=== PATIENT | male | born 1990 | race Asian ===

== ENCOUNTER 2016-05-31 09:18 | Inpatient (IN) | payer OTHER ==
[~2016-05-31] VITALS: Ht 165.1 cm; Wt 68.1 kg
[2016-05-31 09:49] LABS: MEAN CORPUSCULAR HEMOGLOBIN 29.4 pg (27.0-33.0); MEAN CORPUSCULAR HGB CONC 36.4 g/dl (32.0-36.5); MEAN CORPUSCULAR VOLUME 80.7 fl (80.0-96.0); RED CELL DISTRIBUTION WIDTH 12.8 % (11.5-14.5); WHITE BLOOD COUNT 4.8 K/mm3 (4.0-10.0)
[2016-05-31 10:03] LABS: AMPHETAMINES LEVEL URINE NEGATIVE (NEGATIVE); BENZODIAZEPINES URINE NEGATIVE (NEGATIVE); COCAINE METABOLITE URINE NEGATIVE (NEGATIVE); CONTROL LINE INT CTR LINE PRESENT; METHADONE URINE NEGATIVE (NEGATIVE); OPIATES URINE NEGATIVE (NEGATIVE); TRICYCLIC ANTIDEPRESS URINE NEGATIVE (NEGATIVE)
[2016-05-31 10:28] LABS: ALBUMIN 4.8 GM/DL (3.2-5.2); ALBUMIN/GLOBULIN RATIO 1.55 (1.00-1.93); ALKALINE PHOSPHATASE 82 U/L (45-117); ALT/SGPT 53 U/L (12-78); ANION GAP 6 MEQ/L (8-16); AST/SGOT 28 U/L (15-37); BILIRUBIN,DIRECT 0.3 MG/DL (0.0-0.2); BILIRUBIN,TOTAL 1.7 MG/DL (0.2-1.0); BLOOD UREA NITROGEN 15 MG/DL (7-18); CARBON DIOXIDE LEVEL 32 MEQ/L (21-32); CHLORIDE LEVEL 102 MEQ/L (98-107); CREATININE FOR GFR 1.04 MG/DL (0.70-1.30); GLOMERULAR FILTRATION RATE > 60.0 (>60); GLUCOSE, FASTING 95 MG/DL (70-105); POTASSIUM SERUM 4.4 MEQ/L (3.5-5.1); SODIUM LEVEL 140 MEQ/L (136-145); TOTAL PROTEIN 7.9 GM/DL (6.4-8.2)
[2016-05-31] MEDS ORDERED: REFR0.5D8 OU (13:06)
[2016-05-31] MEDS ORDERED: NORT25CA2 PO (14:08)
[2016-05-31] MEDS ORDERED: DESM0.2T PO (14:08)
[2016-05-31] MEDS ORDERED: ACETAMINOPHEN TAB 650MG DOSE (2X325MG) PO PRN (15:45)
[2016-05-31] MEDS ORDERED: traZODone 50 MG TAB PO PRN (15:45)
[2016-05-31] MEDS ORDERED: MAALOX 30 ML SUSP *UDC PO PRN (15:45)
[2016-05-31] MEDS ORDERED: POLYVINYL ALCOHOL OPHTH SOLN 15 ML(LIQUITEARS) OU PRN (15:45)
[2016-05-31 16:07] VITALS: BP 114/67
--- NOTE | 2016-05-31 16:09 | EDDOCDS ---
Physician Documentation [facility] Name: Kesha Darby Age: 25 yrs Sex: Male : 1990 Arrival Date: 05/31/2016 Time: 09:18 Bed U2 Private MD: Disposition: 05/31/16 12:16 Hospitalization ordered by Qamar Martin for Inpatient Admission. Preliminary diagnosis is Suicidal ideations. - Bed requested for Admit. - Status is Inpatient Admission. ms2 - Condition is Stable. - Problem is new. - Symptoms are unchanged. Historical: - Allergies: no known allergies; - Home Meds: 1. Nortriptyline Oral Unknown once daily 2. eye drops for dry eye 3. desmo something for chronic polyuria 4. admission electrical controls technician in to review meds with pt at 1400 - PMHx: polyuria; dry eyes; dizzininess; low back pain; - PSHx: none; - Social history: Smoking status: Patient states was never smoker of tobacco. No barriers to communication noted, The patient speaks fluent Thai. - Family history: Not pertinent. - : The pt / caregiver states he / she is not on anticoagulants. Unable to Verify Home Med List with the patient / caregiver. - Exposure Risk Screening:: None identified. Vital Signs: 05/31 09:36 BP 126 / 88; Pulse 84; Resp 18; Temp 98(O); Pulse Ox 99% ; mk4 15:12 BP 111 / 65; Pulse 100; Resp 20 S; Temp 97.9(O); Pulse Ox 98% on R/A; ms2 MDM: 09:27 Consult PFS/PSA/Airplane Pilot Supervisor ordered. sd1 09:27 Consult PFS/PSA/Airplane Pilot Supervisor: Patient's case requires discussion with on-call sd1 Psychiatrist ordered. 09:27 PSA/PFS to call Nursing Ammunition And Explosives Handler, to enter [place] data on [place] if patient sd1 involuntarily admitted or transferred for SI or HI ordered. 09:27 Confirm accurate psychiatric medication list and times of last dosage ordered. sd1 09:27 Detain Pt Until Medically/PFS Cleared ordered. sd1 09:29 Acetaminophen Level Ordered. EDMS 09:29 Basic Metabolic Profile Ordered. EDMS 09:29 Complete Blood Count Ordered. EDMS 09:29 Drug Eval Toxicology ED Only Ordered. EDMS 09:29 Ethyl Alcohol (ethanol) Ordered. EDMS 09:29 Liver Profile Ordered. EDMS 09:29 Salicylate Level Ordered. EDMS 09:29 Thyroid Stimulating Hormone Ordered. EDMS 10:16 REGULAR DIET ROOM SERVICE ED+DIET ordered. EDMS 10:36 Acetaminophen Level Reviewed. sd1 10:36 Basic Metabolic Profile Reviewed. sd1 10:36 Liver Profile Reviewed. sd1 10:36 Salicylate Level Reviewed. sd1 10:36 Complete Blood Count Reviewed. sd1 10:36 Drug Eval Toxicology ED Only Reviewed. sd1 10:36 Ethyl Alcohol (ethanol) Reviewed. sd1 10:36 Thyroid Stimulating Hormone Reviewed. sd1 11:42 [facility] Payment Agreement was scanned into [employer] and attached to record. jp5 11:42 Financial registration complete. jp5 11:49 REGULAR DIET ROOM SERVICE ED+DIET ordered. EDMS 12:22 Admit to IMHU: ordered. EDMS 12:29 [facility] Legal paperwork was scanned into [employer] and attached to record. ml4 15:45 REGULAR DIET ordered. EDMS Signatures: Dispatcher [employer] EDMS Laura Lopez MD MD sd1 Lawson Vee,RN RN ms2 Ines Stout, PSA PSA ml4 Marianna Chau, RN RN mk4 Sheryl Donahue jp5 The chart was reviewed and I authenticate all verbal orders and agree with the evaluation and treatment provided.Attachments: 11:42 [facility] Payment Agreement jp5 MTDD
--- NOTE | 2016-05-31 16:09 | EDDOCDS ---
Nurse's Notes [facility] Name: Kesha Darby Age: 25 yrs Sex: Male : 1990 Arrival Date: 05/31/2016 Time: 09:18 Bed [facility] Private MD: Diagnosis: Suicidal ideations Presentation: 05/31 09:25 Presenting complaint: Patient states: sent from [facility]. Mental [facility] Health Triage Level: Level 2: The patient displays active suicidal ideations. Adult Sepsis Screening: The patient does not have new or worsening altered mentation. Patient's respiratory rate is less than 22. Systolic blood pressure is greater than 100. Patient has a qSOFA score of 0- Negative Sepsis Screen. Suicide/Homicide risk assessment- The patient admits to and/or has been reported to be having suicidal ideations. 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 Transition of care: patient was received from [facility]. 09:25 Acuity: HANS Level 3 [facility] 09:25 Method Of Arrival: Ambulance [facility] Triage Assessment: 09:36 General: Appears in no apparent distress. Pain: Location: reports chronic back pain. 4 HIV screening NA for this visit Offered previously. Historical: - Allergies: no known allergies; - Home Meds: 1. Nortriptyline Oral Unknown once daily 2. eye drops for dry eye 3. desmo something for chronic polyuria 4. admission cell technician in to review meds with pt at 1400 - PMHx: polyuria; dry eyes; dizzininess; low back pain; - PSHx: none; - Social history: Smoking status: Patient states was never smoker of tobacco. No barriers to communication noted, The patient speaks fluent Syrian. - Family history: Not pertinent. - : The pt / caregiver states he / she is not on anticoagulants. Unable to Verify Home Med List with the patient / caregiver. - Exposure Risk Screening:: None identified. Screenin:55 Screening information is obtained from the patient. Fall risk: No risks identified. ms2 Assistance ADL's: requires no assistance with activities of daily living. Abuse/DV Screen: The patient / caregiver reports he/she is: not in a situation that causes fear, pain or injury. Nutritional screening: No deficits noted. Advance Directives: Currently, there is no health care proxy. There is no active DNR order. There is no living will. There is no Power of Supervisor Heading. Advance directive information has not previously been placed in an [facility] medical record. Further advance directive information is declined. home support is adequate. Assessment: 09:37 General: Appears in no apparent distress, comfortable, Behavior is cooperative, dwg pleasant, quiet. General: Calm and cooperative, offers no complaints.. Pain: Denies pain. Neurological: Level of Consciousness is awake, alert, Oriented to person, place, time. Respiratory: Airway is patent Respiratory effort is even, unlabored, Respiratory pattern is regular, symmetrical. 10:16 Reassessment: Patient anxious and appears scared - had to think if he had pain or not kcs and then stated "no". Was agreeable to something to eat - ordered. Denies any other needs. Respirations easy. Color = pink. Security observing.. 10:47 Reassessment: Patient eating. escort at bedside. Security observing.. kcs 11:50 General: Appears in no apparent distress, comfortable, sitting in chair -F Drun ms2 personnel sitting with pt. Behavior is cooperative. Neurological: Level of Consciousness is awake, alert, obeys commands. Respiratory: No deficits noted. Airway is patent Respiratory effort is even, unlabored, Respiratory pattern is regular, symmetrical. GI: Abdomen is flat, non- distended. Derm: Skin is pink, warm & dry. Musculoskeletal: Range of motion intact in all extremities. 12:31 General: Appears comfortable, Behavior is cooperative, remains with pt. ms2 Neurological: No deficits noted. Respiratory: No deficits noted. :. Derm: Skin is pink, warm & dry. 13:15 General: Appears in no apparent distress, comfortable, Behavior is cooperative, ms2 with pt. Neurological: No deficits noted. Respiratory: Respiratory effort is even, unlabored. Derm: Skin is pink, warm & dry. Musculoskeletal: Range of motion intact in all extremities. 14:35 General: Appears in no apparent distress, Behavior is cooperative. Neurological: No ms2 deficits noted. Respiratory: Respiratory effort is even, unlabored, Respiratory pattern is regular, symmetrical. Derm: Skin is pink, warm & dry. Musculoskeletal: No deficits noted. 15:13 General: Appears in no apparent distress, comfortable, Behavior is crying. ms2 Neurological: No deficits noted. Respiratory: Respiratory effort is even, unlabored. Derm: Skin is pink, warm & dry. Derm: No deficits noted. 15:13 Adult Sepsis Screening: The patient does not have new or worsening altered mentation. ms2 Patient's respiratory rate is less than 22. Systolic blood pressure is greater than 100. Patient has a qSOFA score of 0- Negative Sepsis Screen. 15:38 General: Appears in no apparent distress, comfortable, Behavior is cooperative, ms2 pleasant. Neurological: Level of Consciousness is awake, alert, obeys commands. Respiratory: No deficits noted. Airway is patent Respiratory effort is even, unlabored, Respiratory pattern is regular, symmetrical. GI: Abdomen is flat, non- distended. Derm: Skin is pink, warm & dry. Musculoskeletal: Range of motion intact in all extremities. Mental Health Eval: 11:42 Mental health consult is initiated at 11:30. 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 [facility] Behavioral Health: The patient is not an established patient of [facility] Behavioral Health. Referral Information: Evaluation referral is generated by Clinical Psychologist(Jamal Sullivan) \\T\\ FDS. The patient was referred for evaluation because thoughts of suicide with plan OD due to on-going stressors . Subjective: The patients chief complaint is pt states, "I need to be hospitalized." Pt reports suffering from thoughts of suicide for awhile, however thoughts are getting increasingly more severe. Admits he's wanting to kill himself with plan to OD. Pt states, "I have lots of meds I can take to kill myself." Admits 5 months ago, he attempted suicide by OD, but refuses to explain in detail due to feeling embarrassed. States he never received tx and never told anyone until today. Suicidal triggers include distress related to his divorce and occupational stressors. His ex and 2 year old daughter reside in [place] and states, "I've lost everything." He reports unable to sleep due to missing his daughter too much and states, "everyday is a struggle and I want to ." Pt is very vague while speaking about occupational stressors and refuses to elaborate on specific details. In addition to SI, pt reports suffering from AH and describes them as "they are behind me and calling my name." . Delusions are denied. Patient's mood is anxious, depressed, Auditory Hallucinations are reported by the patient. Mental Health history: depression, Mental Health Admissions: None. Current Outpatient Mental Health Services: Psychiatrist / Agency: Jamal Sullivan/[facility], Last seen today . Therapist / Agency: [facility] . Current living environment is Family / Home Support: poor, but parents are here on visiting pt on [place]. The patient currently lives alone . The patient is . Patient presents to Emergency Department with the following symptoms within the past 2 weeks: anxiety, decreased appetite, depressed mood, feelings of helplessness/hopelessness, marital problem, poor concentration, poor impulse control, relational problem, sleep disturbance - insomnia, suicidal ideation with plan for pills. Substance abuse: Pt denies. Mental status exam: Patients appearance is appropriate, Patient's behavior is cooperative, Speech is normal. Affect is flat. Mood is depressed. Auditory Hallucinations are reported by the patient. Appetite is poor. Memory is good. Energy level is normal. Content of thought is depressive. due to thoughts of suicide with plan. Thought process is intact. Cognitive level is oriented to person, place, time and situation Patient's insight is poor. Judgement is poor. Rapport with interviewer is good. Suicidal Ideation present with a plan to kill self by pills. Homicidal ideation is denied. Disposition: Medically cleared for disposition by Laura Lopez MD Psychiatric Consult is performed by phone with Dr Qamar Martin MD. [facility] Admission Criteria: The patient is experiencing suicidal ideation. The patient requires continuous observation and/or control to protect self, others or property. The patient's care requires a multi-modal treatment plan under close supervision and coordination due to the complexity and severity of the patient's symptoms. The patient requires administration and monitoring of psychoactive medications by skilled medical providers due to the side effects of the psychoactive medications or significant dosage adjustments. Legal Status: Patient's legal status will be Emergency admission: . [place] because the patient does not display any suicidal or homicidal ideations and does not pose a risk to self or others. DSM-V Differential Diagnosis: Major Depressive Disorder severe (F33.2). Insurance Pre-Certification: Not Required, not required, tri-care . Narrative: Notice of Status and Rights, FAQ, and Bill of Rights was given at bedside. Awaiting: transfer to [facility]. Vital Signs: 09:36 BP 126 / 88; Pulse 84; Resp 18; Temp 98(O); Pulse Ox 99% ; mk4 15:12 BP 111 / 65; Pulse 100; Resp 20 S; Temp 97.9(O); Pulse Ox 98% on R/A; ms2 Vitals: 09:36 Log In Time N/A - ambulance arrival. mk4 ED Course: 09:20 Patient visited by Sheryl Donahue. jp5 09:20 Patient moved to Waiting jp5 09:[address] [facility] dwg 09:26 Triage Initiated mk4 09:27 Laura Lopez MD is Attending Physician. sd1 09:27 Patient visited by Laura Lopez MD. sd1 09:30 Patient visited by Ko Contreras Security Aide. pjf 09:37 Acetaminophen Level Sent. dwg 09:37 Basic Metabolic Profile Sent. dwg 09:37 Complete Blood Count Sent. dwg 09:37 Drug Eval Toxicology ED Only Sent. dwg 09:37 Ethyl Alcohol (ethanol) Sent. dwg 09:37 Liver Profile Sent. dwg 09:37 Salicylate Level Sent. dwg 09:37 Thyroid Stimulating Hormone Sent. dwg 09:37 Labs drawn. (by ED staff). Sent per order to lab. Urine collected. Clean catch dwg specimen. Urine specimen sent to lab. 09:38 Patient visited by Daniel Reyes RN. dwg 09:40 Pt greeted and oriented to ED. Patient advised of names of staff involved in care, pjf location of call kwan, wait times and NPO status. Accompanied by ems, Patient has correct armband on for positive identification. Placed in psych safe attire. Bed in low position. Call light in reach. Side rails up X 1. Security observing. Property removed, secured in belongings bag- Placed in locker #2. Door closed. Noise minimized. Visitors limited. Report received from rn - psych. triage level #2, +si, cooperative \\T\\ this time. The patient / caregiver is instructed regarding the plan of care and ED course. Psych Safety Check: Location: Psych Room. 10:05 Patient visited by oK Contreras Security Aide. pjf 10:17 Patient visited by Ko Contreras Security Aide. pjf 10:29 Patient visited by Ko Contreras Security Aide. pjf 10:45 Patient visited by Ko Contreras Security Aide. pjf 11:01 Patient visited by Ko Contreras Security Aide. pjf 11:15 Patient visited by Ko Contreras Security Aide. pjf 11:32 Patient visited by Ko Contreras Security Aidradha. pjf 11:42 [facility] Payment Agreement was scanned into [employer] and attached to record. jp5 11:46 Patient visited by Ko Contreras Security Aidradha. pjf 11:50 The patient / caregiver is instructed regarding the plan of care and ED course. ms2 Security observing. 11:55 The patient / caregiver is instructed regarding the plan of care and ED course. ms2 Security observing. 11:59 Patient visited by Ko Contreras Security Aidradha. pjf 12:12 Patient visited by Ko Contreras Security Aide. pjf 12:16 Qamar Martin MD is Hospitalizing Provider. sd1 12:29 [facility] Legal paperwork was scanned into [employer] and attached to record. ml4 12:31 The patient / caregiver is instructed regarding the plan of care and ED course. ms2 Security observing. 13:02 Patient visited by Ko Contreras Security Aidradha. pjf 13:14 Patient visited by Ko Contreras Security Aidradha. pjf 13:15 Psych Safety Check: Location: Psych Room. Visual Assessment: Cooperative. pjf 13:15 The patient / caregiver is instructed regarding the plan of care and ED course. ms2 Security observing. 13:30 Psych Safety Check: Location: Psych Room. Visual Assessment: Cooperative. pjf 13:45 Psych Safety Check: Location: Psych Room. Visual Assessment: Cooperative. pjf 14:00 Psych Safety Check: Location: Psych Room. Visual Assessment: Cooperative. pjf 14:15 Psych Safety Check: Location: Psych Room. Visual Assessment: Cooperative. pjf 14:29 Patient name changed from Himal\\S\\\\S\\Pangeni\\S\\ to Himal\\S\\ \\S\\Pangeni. EDMS 14:30 Psych Safety Check: Location: Psych Room. Visual Assessment: Cooperative. pjf 14:35 The patient / caregiver is instructed regarding the plan of care and ED course. ms2 Security observing. 14:49 Patient visited by Ko Contreras Security Aide. pjf 15:12 Patient visited by Lawson Vee RN. ms2 15:13 The patient / caregiver is instructed regarding the plan of care and ED course. ms2 Security observing. 15:15 Patient visited by Lawson Vee RN. ms2 15:31 Patient visited by Ko Contreras Security Aide. pjf 15:39 The patient / caregiver is instructed regarding the plan of care and ED course. ms2 Security observing. 15:39 No IV's were initiated during this patient's visit. No procedures done that require ms2 assistance. Attachments: 12:29 [facility] Legal paperwork ml4 Order Results: Lab Order: Acetaminophen Level; SPEC'M 05/31/16 09:35 Test: ACETAMINOPHEN LEVEL; Value: < 2.0; Range: 10.0-30.0; Abnormal: Below low normal; Units: UG/ML; Status: F Lab Order: Basic Metabolic Profile; SPEC'M 05/31/16 09:35 Test: GLUCOSE, FASTING; Value: 95; Range: 70-105; Units: MG/DL; Status: F Test: BLOOD UREA NITROGEN; Value: 15; Range: 7-18; Units: MG/DL; Status: F Test: CREATININE FOR GFR; Value: 1.04; Range: 0.70-1.30; Units: MG/DL; Status: F Test: GLOMERULAR FILTRATION RATE; Value: > 60.0; Range: >60; Status: F Test: SODIUM LEVEL; Value: 140; Range: 136-145; Units: MEQ/L; Status: F Test: POTASSIUM SERUM; Value: 4.4; Range: 3.5-5.1; Units: MEQ/L; Status: F Test: CHLORIDE LEVEL; Value: 102; Range: 98-107; Units: MEQ/L; Status: F Test: CARBON DIOXIDE LEVEL; Value: 32; Range: 21-32; Units: MEQ/L; Status: F Test: ANION GAP; Value: 6; Range: 8-16; Abnormal: Below low normal; Units: MEQ/L; Status: F Test: CALCIUM LEVEL; Value: 9.0; Range: 8.5-10.1; Units: MG/DL; Status: F Test Note: ; Units are mL/min/1.73 m2 Chronic Kidney Disease Staging per NKF: Stage I & II GFR >=60 Normal to Mildly Decreased Stage III GFR 30-59 Moderately Decreased Stage IV GFR 15-29 Severely Decreased Stage V GFR <15 Very Little GFR Left ESRD GFR <15 on BIOCHEMISTRY TECHNICIAN Lab Order: Complete Blood Count; SPEC'M 05/31/16 09:35 Test: WHITE BLOOD COUNT; Value: 4.8; Range: 4.0-10.0; Units: K/mm3; Status: F Test: RED BLOOD COUNT; Value: 5.87; Range: 4.30-6.10; Units: M/mm3; Status: F Test: HEMOGLOBIN; Value: 17.2; Range: 14.0-18.0; Units: g/dl; Status: F Test: HEMATOCRIT; Value: 47.4; Range: 42.0-52.0; Units: %; Status: F Test: MEAN CORPUSCULAR VOLUME; Value: 80.7; Range: 80.0-96.0; Units: fl; Status: F Test: MEAN CORPUSCULAR HEMOGLOBIN; Value: 29.4; Range: 27.0-33.0; Units: pg; Status: F Test: MEAN CORPUSCULAR HGB CONC; Value: 36.4; Range: 32.0-36.5; Units: g/dl; Status: F Test: RED CELL DISTRIBUTION WIDTH; Value: 12.8; Range: 11.5-14.5; Units: %; Status: F Test: PLATELET COUNT, AUTOMATED; Value: 178; Range: 150-450; Units: k/mm3; Status: F Lab Order: Drug Eval Toxicology ED Only; SPEC'M 05/31/16 09:30 Test: AMPHETAMINES LEVEL URINE; Value: NEGATIVE; Range: NEGATIVE; Status: F Test: BARBITURATES URINE; Value: NEGATIVE; Range: NEGATIVE; Status: F Test: BENZODIAZEPINES URINE; Value: NEGATIVE; Range: NEGATIVE; Status: F Test: CANNABINOIDS URINE; Value: NEGATIVE; Range: NEGATIVE; Status: F Test: COCAINE METABOLITE URINE; Value: NEGATIVE; Range: NEGATIVE; Status: F Test: METHADONE URINE; Value: NEGATIVE; Range: NEGATIVE; Status: F Test: OPIATES URINE; Value: NEGATIVE; Range: NEGATIVE; Status: F Test: TRICYCLIC ANTIDEPRESS URINE; Value: NEGATIVE; Range: NEGATIVE; Status: F Test Note: ; ALL PRESUMPTIVE POSITIVE FINDINGS ARE UNCONFIRMED NORMAL VALUES THRESHOLD IN NG/ML AMPHETAMINES 1000 METHAMPHETAMINES 1000 BARBITURATES 300 BENZODIAZEPINES 300 CANNABINOIDS (THC) 50 COCAINE METABOLITE 300 METHADONE 300 OPIATES 300 PHENCYCLIDINE 25 TRICYCLIC ANTIDEPRESSANTS 1000 RESULTS ARE FOR MEDICAL PURPOSES ONLY. ALL URINE SPECIMENS WILL BE SAVED FOR 3 DAYS. IF CONFIRMATION OF A PRESUMPTIVE POSTIVE SCREEN RESULT IS DESIRED, CALL CHEMISTRY ([phone]) AND REQUEST URINE TO BE SENT TO REFERENCE LAB. FOR A LIST OF CLOSELY RELATED COMPOUNDS PLEASE CALL THE LAB. Lab Order: Ethyl Alcohol (ethanol); 05/31/16 09:35 Test: ETHYL ALCOHOL (ETHANOL); Value: < 0.003; Range: 0.000-0.010; Units: %; Status: F Lab Order: Liver Profile; 05/31/16 09:35 Test: AST/SGOT; Value: 28; Range: 15-37; Units: U/L; Status: F Test: ALT/SGPT; Value: 53; Range: 12-78; Units: U/L; Status: F Test: ALKALINE PHOSPHATASE; Value: 82; Range: 45-117; Units: U/L; Status: F Test: BILIRUBIN,TOTAL; Value: 1.7; Range: 0.2-1.0; Abnormal: Above high normal; Units: MG/DL; Status: F Test: BILIRUBIN,DIRECT; Value: 0.3; Range: 0.0-0.2; Abnormal: Above high normal; Units: MG/DL; Status: F Test: TOTAL PROTEIN; Value: 7.9; Range: 6.4-8.2; Units: GM/DL; Status: F Test: ALBUMIN; Value: 4.8; Range: 3.2-5.2; Units: GM/DL; Status: F Test: ALBUMIN/GLOBULIN RATIO; Value: 1.55; Range: 1.00-1.93; Status: F Lab Order: Salicylate Level; 05/31/16 09:35 Test: SALICYLATE LEVEL; Value: < 1.7; Range: 5.0-30.0; Abnormal: Below low normal; Units: MG/DL; Status: F Lab Order: Thyroid Stimulating Hormone; 05/31/16 09:35 Test: THYROID STIMULATING HORMONE; Value: 2.280; Range: 0.358-3.740; Units: uIU/ML; Status: F Outcome: 12:16 Decision to Hospitalize by Provider. sd1 15:39 Discharge Assessment: patient administered narcotics - no. The following High Risk ms2 Discharge criteria are identified: None. Admitted to Psych accompanied by tech, via wheelchair, with chart. Condition: stable. No special radiology studies were completed. 16:08 Patient left the ED. ms2 Signatures: Dispatcher [employer] EDMS Laura Lopez MD MD sd1 Esperanza Nair, RN RN kcs Lawson Vee,RN RN ms2 Daniel Reyes, RN RN Ko Garcia, [facility] Aide Ines Pratt PSA PSA ml4 Marianna Chau, RN RN 4 Sheryl Donahue jp5 PAIGE
[2016-05-31 18:00] VITALS: BP 122/83
[2016-05-31] MEDS: DESMOPRESSIN ACETATE 0.1 MG TAB PO SCH (21:19)
[2016-05-31] MEDS: NORTRIPTYLINE 25 MG CAP PO SCH (21:19)
[2016-06-01 06:34] VITALS: BP 118/65
--- NOTE | 2016-06-01 09:44 | HPEPDOC ---
[facility] History & Physical History and Physical DATE OF ADMISSION: May 31, 2016 at 15:50 CHIEF COMPLAINT: "I've been in behavioral health 8-9 months already, was told to come over here". 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 Patient states he is currently going through a divorce, is missing his 2-year- old daughter who lives with his in [place], and doesn't feel he can function properly at work. Patient feels he is very overwhelmed and stressed because of all of this. Patient is also concerned as he feels [facility] is holding up his visits for his medical conditions. Patient states most worrisome are his urology and kidney issues which he has been trying to see a jig and fixture maker since January 2016. Patient is also worried that he will be deployed before he can get his issues addressed. PAST PSYCHIATRIC HISTORY: Patient states he's been in behavioral health services at [employer] for the last 8-9 months. Patient reports he started the services at the beginning of his divorce process. Patient denies any prior psychiatric history. ALLERGIES: Please see below. HOME MEDICATIONS: Please see below. Patient denies PAST MEDICAL HISTORY: 1. Polyuria 2. Migraine headaches 3. Dizziness FAMILY PSYCHIATRIC HISTORY: Patient denies. 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 Patient is currently from his who lives in [place] with their 2-year-old daughter. Patient reports that his parents are currently living with him. Patient states he has one brother and 2 sisters that are supportive but live in [facility]. 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 SUBSTANCE ABUSE HISTORY: Patient states he was involved in the [employer] program until last year. Patient reports he did have a drinking problem but doesn't drink at all now. LEGAL HISTORY: Denies. VITAL SIGNS: Temperature 95.9, pulse 96, respiratory rate 16, blood pressure 118 /65. LABORATORY DATA: Please see below. Admission UDS was negative. GFR is greater than 60, total bili is 1.7 which is high, direct bili 0.3 which is high, anion gap is 6 which is low. MENTAL STATUS EXAMINATION: Patient is a 25 year-old male who appears his stated age. Patient is observed lying in bed as provider approaches. Patient gets up readily to speak with provider without being asked. Patient is pleasant and cooperative. Patient is wearing hospital scrubs and T-shirt, has average grooming, is of normal weight and build. Speech: Is of normal rate, volume. Patient is articulate, coherent and spontaneous. Language skills: Intact. Thought processes: Clearing, not goal-directed yet. Thought content: Rational, logical, tangential times. Abstract reasoning, and computation: Adequate. Description of associations: Intact. Description of abnormal or psychotic thoughts: Patient denies hallucinations, however initially stated he had auditory hallucinations with someone behind him calling his name. Patient denies delusions, paranoia, obsessions or compulsions. Patient denies any homicidal or suicidal ideations. Patient does feel he may be preoccupied with his work. Patient states "my work, there is a lot ". Patient has no thoughts of self-harm such as cutting. Judgment: Poor. Insight: Poor. Orientation to: Time, person, place and surroundings. Recent and remote memory: "Not bad". Attention span and concentration: Fair. Language: Normal. Fund of knowledge: Adequate. Mood: "Little headache, a little of everything". Affect: Appropriate, constricted, anxious. DIAGNOSES: 1. Depressive disorder, single-moderate. 2. 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 Patient feels his biggest stressors are his current health issues that he can't get any answers on. This is followed by the impending divorce with his and inability to see his daughter that often. Patient is also worried about upcoming deployment especially if he is not yet medically cleared. Patient had not yet been put on any meds by behavioral health. Patient states he slept well after he took the meds. Patient states "I took the meds ". Patient reports he was able to get 6 hours of sleep. Patient denies having any nightmares during last nights sleep. His nightmares have been a problem recently, affecting his sleep. PROBLEM LIST: 1. Risk for suicide. 2. Ineffective coping. 3. Depression/anxiety. INITIAL TREATMENT PLAN: Patient to take medications as ordered for decrease in symptoms. Maintain safety precautions. Patient to attend groups and participate in unit programming to develop effective coping strategies. Patient to be engaged in discharge planning process to ensure safe and effective discharge plan. Patient to follow-up with primary care physician upon discharge. Patient to resume therapy and medication management upon discharge. ESTIMATED LENGTH OF STAY: 7-10 days. TIME SPENT COUNSELING AND COORDINATING INITIAL CARE: 50 minutes. Medications Scheduled Desmopressin Acetate (Desmopressin Acetate) 0.2 Mg Tab 0.2 MG PO QHS (Reported ) Nortriptyline HCl (Nortriptyline HCl) 25 Mg Cap 25 MG PO QHS (Reported) Scheduled PRN Carboxymethylcellulose Sodium (Refresh Tears) 0.5 % Abelardo 0.5 % OU PRN PRN PRN DRY EYES (Reported) Allergies Coded Allergies: No Known Drug Allergy (Unverified Allergy, Unknown, 05/31/16) VETO GALICIA NP Jun 01, 2016 09:44
[2016-06-01] MEDS ORDERED: hydrOXYzine 25 MG TAB PO PRN (13:15)
--- NOTE | 2016-06-01 14:48 | HPEPDOC ---
Medical History and Physical Date of Admission May 31, 2016 at 15:50 History and Physical PCP: [facility] ATTENDING: Dr. Kristopher Palacios HPI: 25yoM admitted to [facility] for depressive disorder, being medically examined today. Patient complains of low back pain. He denies prior injury. Denies prior imaging. He states the pain radiates to the right buttock. Radiates down to the posterior knee. He denies weakness in the legs. No numbness or tingling in the lower extremities. He denies bowel or bladder incontinence. Sitting or running makes his pain worse. Walking makes his pain better. Denies any fevers, chills, weakness, fatigue, KAUFMAN, CP, SOB, cough, palpitations, abdominal pain, N/V/D or changes in bowel or bladder habits. PMHx: chronic back pain depression anxiety migraine KAUFMAN insomnia chronic polyuria/urinary frequency- follows with [facility] urology PSHX: denies SOCHX: Resides in: [place], from [facility] Marital Status: Kids: 1 Employment: [employer] Tobacco use: denies ETOH: [employer] 02/11 4-5 cans per nt for 6 mo prior. Illicit Drugs: Denies IV Drug Use: Denies Tattoos done unprofessionally: Denies FAMHX: Mother: Alive, well Father: Alive, DM Siblings: Alive, well Children: Alive, well Unexpected deaths due to medical reasons: None. ROS: As noted in HPI, otherwise 11pt ROS of systems reviewed and unremarkable PE: GEN: 25yoM, appears stated age. Well-nourished, well developed. No acute distress. Alert and oriented x 3. Pleasant, interactive. HEENT: Normocephalic, atraumatic. Pupils are equal, round, and reactive to light. Extraocular movements are intact. No nystagmus appreciated. Sclera are nonicteric. Conjunctiva without injection. Nose midline. Nasal turbinates without bogginess. EACs both patent BL. TMs both visualized and [place] with good cone of light, no bulging or erythema. No facial asymmetry. Moist mucous membranes. Dentition fair. Pharynx pink and moist, no cobblestoning. Neck supple , trachea midline. No lymphadenopathy or thyromegaly appreciated. CHEST: Regular rate and rhythm, +S1, +S2 LUNGS: Clear to auscultation bilaterally. No wheezes, rales, or rhonchi. Breathing appears symmetric and easy. Patient is speaking in full sentences. No accessory muscle use. ABD: Round, soft, non-tender, non-distended. +Bowel sounds throughout. No rebound or guarding. No costovertebral angle tenderness. EXT: Pulses 2+ bilaterally dorsalis pedis and radial. No lower extremity edema appreciated. SKIN: [place], dry, warm. Capillary refill <2sec. No rashes. NEURO: Alert and oriented x 3. Cranial nerves III-XII are intact. No focal deficits appreciated. EKG: pending. A&P: 25yoM admitted to [facility] for depressive disorder 1. Psych. Plan per Psychiatry. Obtain baseline EKG to assure the safety of psychiatric medications as they can prolong the QT interval. 2. chronic polyuria/urinary frequency. DDAVP 0.2mg HS. Spoke to Nephrology he has appt with Nephrology- Dr Kay 07/03/16. 3. migraine KAUFMAN- Continue Pamelor 25mg HS. 4. Follow up with PCP on discharge. [facility]. 5. Chronic low back pain. Check x-ray of lumbosacral spine. Check vitamin D level. Continue Tylenol 650 mg every 6 hours as needed. 6. Staff member present throughout exam, Benson patino. Vital Signs Vital Signs Label Value Date Time Patient Temperature 95.9 degrees F 06/01/16 0634 Temperature Source Tympanic 06/01/16 0634 Pulse 96 06/01/16 0634 Respiratory Rate 16 bpm 06/01/16 0634 Blood Pressure Assessment 118/65 (82) 06/01/16 0634 Laboratory Data Labs 24H Item Value Date Time White Blood Count 4.8 K/mm3 05/31/16 0935 Red Blood Count 5.87 M/mm3 05/31/16 0935 Hemoglobin 17.2 g/dl 05/31/16 0935 Hematocrit 47.4 % 05/31/16 0935 Mean Corpuscular Volume 80.7 fl 05/31/16 0935 Mean Corpuscular Hemoglobin 29.4 pg 05/31/16 0935 Mean Corpuscular Hemoglobin Concent 36.4 g/dl 05/31/16 0935 Red Cell Distribution Width 12.8 % 05/31/16 0935 Platelet Count 178 k/mm3 05/31/16 0935 Sodium Level 140 MEQ/L 05/31/1635 Potassium Level 4.4 MEQ/L 05/31/16 0935 Chloride Level 102 MEQ/L 05/31/16 0935 Carbon Dioxide Level 32 MEQ/L 05/31/16 0935 Anion Gap 6 MEQ/L L 05/31/16 0935 Blood Urea Nitrogen 15 MG/DL 05/31/16 0935 Creatinine 1.04 MG/DL 05/31/16 0935 Glomerular Filtration Rate > 60.0 05/31/16 0935 Fasting Glucose 95 MG/DL 05/31/16 0935 Calcium Level 9.0 MG/DL 05/31/16 0935 Total Bilirubin 1.7 MG/DL H 05/31/16 0935 Direct Bilirubin 0.3 MG/DL H 05/31/16 0935 Aspartate Amino Transf (AST/SGOT) 28 U/L 05/31/16 0935 Alanine Aminotransferase (ALT/SGPT) 53 U/L 05/31/16 0935 Alkaline Phosphatase 82 U/L 05/31/16 0935 Total Protein 7.9 GM/DL 05/31/16 0935 Albumin 4.8 GM/DL 05/31/16 0935 Albumin/Globulin Ratio 1.55 05/31/16 0935 Thyroid Stimulating Hormone (TSH) 2.280 uIU/ML 05/31/16 0935 Salicylates Level < 1.7 MG/DL L 05/31/1635 Urine Opiates Screen NEGATIVE 05/31/16929 Urine Methadone Screen NEGATIVE 05/31/16 0930 Acetaminophen Level < 2.0 UG/ML L 05/31/16 0935 Urine Barbiturates, Qualitative NEGATIVE 05/31/16 09 Urine Tricyclic Antidepressants NEGATIVE 05/31/1630 Urine Amphetamine Level NEGATIVE 05/31/16 0930 Urine Benzodiazepines Screen NEGATIVE 05/31/1630 Urine Cocaine Metabolite NEGATIVE 05/31/16929 Urine Cannabinoids NEGATIVE 05/31/16 0930 Ethyl Alcohol Level < 0.003 % 05/31/16 0935 Home Medications Scheduled Desmopressin Acetate (Desmopressin Acetate) 0.2 Mg Tab 0.2 MG PO QHS Nortriptyline HCl (Nortriptyline HCl) 25 Mg Cap 25 MG PO QHS Scheduled PRN Carboxymethylcellulose Sodium (Refresh Tears) 0.5 % Abelardo 0.5 % OU PRN PRN PRN DRY EYES Allergies Coded Allergies: No Known Drug Allergy (Unverified Allergy, Unknown, 05/31/16) Sulema Sandoval Jun 01, 2016 14:48
[2016-06-01] MEDS: MOM 30ML SUSPENSION UDC PO PRN (16:13)
--- NOTE | 2016-06-01 16:13 | REP ---
Lumbar spine series: Five views: History: Pain. Findings: Five views of the lumbar spine show preserved vertebral body heights. Alignment is normal. There is some straightening of the normal lumbar lordosis. Disc spaces are maintained. No fracture or collapse is seen. Impression: Straightening. Otherwise negative lumbar spine radiographs. Signed by Santiago Flores MD 06/01/2016 07:29 P
[2016-06-01 18:00] VITALS: BP 106/65
--- NOTE | 2016-06-01 18:35 | ECGEPIP ---
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
[2016-06-01] MEDS: DESMOPRESSIN ACETATE 0.1 MG TAB PO SCH (20:52)
[2016-06-01] MEDS: NORTRIPTYLINE 25 MG CAP PO SCH (20:52)
[2016-06-02 06:55] VITALS: BP 101/58
--- NOTE | 2016-06-02 17:09 | EDDOCDS ---
Physician Documentation [facility] Name: Kesha Darby Age: 25 yrs Sex: Male : 1990 Arrival Date: 05/31/2016 Time: 09:18 Bed U2 Private MD: Disposition: 05/31/16 12:16 Hospitalization ordered by Qamar Martin for Inpatient Admission. Preliminary diagnosis is Suicidal ideations. - Bed requested for Admit. - Status is Inpatient Admission. ms2 - Condition is Stable. - Problem is new. - Symptoms are unchanged. Historical: - Allergies: no known allergies; - Home Meds: 1. Nortriptyline Oral Unknown once daily 2. eye drops for dry eye 3. desmo something for chronic polyuria 4. admission pathological technician in to review meds with pt at 1400 - PMHx: polyuria; dry eyes; dizzininess; low back pain; - PSHx: none; - Social history: Smoking status: Patient states was never smoker of tobacco. No barriers to communication noted, The patient speaks fluent Tajik. - Family history: Not pertinent. - : The pt / caregiver states he / she is not on anticoagulants. Unable to Verify Home Med List with the patient / caregiver. - Exposure Risk Screening:: None identified. Vital Signs: 05/31 09:36 BP 126 / 88; Pulse 84; Resp 18; Temp 98(O); Pulse Ox 99% ; mk4 15:12 BP 111 / 65; Pulse 100; Resp 20 S; Temp 97.9(O); Pulse Ox 98% on R/A; ms2 MDM: 09:27 Consult PFS/PSA/Curb Setter Helper ordered. sd1 09:27 Consult PFS/PSA/Curb Setter Helper: Patient's case requires discussion with on-call sd1 Psychiatrist ordered. 09:27 PSA/PFS to call Nursing Four Roll Calender Operator, to enter patient data on [place] Safe Act if patient sd1 involuntarily admitted or transferred for SI or HI ordered. 09:27 Confirm accurate psychiatric medication list and times of last dosage ordered. sd1 09:27 Detain Pt Until Medically/PFS Cleared ordered. sd1 09:29 Acetaminophen Level Ordered. EDMS 09:29 Basic Metabolic Profile Ordered. EDMS 09:29 Complete Blood Count Ordered. EDMS 09:29 Drug Eval Toxicology ED Only Ordered. EDMS 09:29 Ethyl Alcohol (ethanol) Ordered. EDMS 09:29 Liver Profile Ordered. EDMS 09:29 Salicylate Level Ordered. EDMS 09:29 Thyroid Stimulating Hormone Ordered. EDMS 10:16 REGULAR DIET ROOM SERVICE ED+DIET ordered. EDMS 10:36 Acetaminophen Level Reviewed. sd1 10:36 Basic Metabolic Profile Reviewed. sd1 10:36 Liver Profile Reviewed. sd1 10:36 Salicylate Level Reviewed. sd1 10:36 Complete Blood Count Reviewed. sd1 10:36 Drug Eval Toxicology ED Only Reviewed. sd1 10:36 Ethyl Alcohol (ethanol) Reviewed. sd1 10:36 Thyroid Stimulating Hormone Reviewed. sd1 11:42 [place] [place] was scanned into [employer] and attached to record. jp5 11:42 Financial registration complete. jp5 11:49 REGULAR DIET ROOM SERVICE ED+DIET ordered. EDMS 12:22 Admit to IMHU: ordered. EDMS 12:29 [facility] Legal paperwork was scanned into [employer] and attached to record. ml4 15:45 REGULAR DIET ordered. EDMS 06/01 12:24 T-Sheet-- Draft Copy was scanned into [employer] and attached to record. gb 12:25 PCR was scanned into [employer] and attached to record. gb Signatures: Dispatcher [employer] EDTX Laura Lopez MD MD sd1 Lawson Vee,RN RN ms2 Saba Mcadams, Reg Reg gb Ines Stout, PSA PSA ml4 Marianna Chau RN RN 4 Sheryl Donahue jp5 The chart was reviewed and I authenticate all verbal orders and agree with the evaluation and treatment provided.Attachments: 05/31 11:42 [place] [place] Agreement jp5 06/01 12:24 T-Sheet-- Draft Copy gb Chart Complete MTDD
--- NOTE | 2016-06-02 17:09 | EDDOCDS ---
Physician Documentation [facility] Name: Kesha Darby Age: 25 yrs Sex: Male : 1990 Arrival Date: 05/31/2016 Time: 09:18 Bed U2 Private MD: Disposition: 05/31/16 12:16 Hospitalization ordered by Qamar Martin for Inpatient Admission. Preliminary diagnosis is Suicidal ideations. - Bed requested for Admit. - Status is Inpatient Admission. ms2 - Condition is Stable. - Problem is new. - Symptoms are unchanged. Historical: - Allergies: no known allergies; - Home Meds: 1. Nortriptyline Oral Unknown once daily 2. eye drops for dry eye 3. desmo something for chronic polyuria 4. admission eye technician in to review meds with pt at 1400 - PMHx: polyuria; dry eyes; dizzininess; low back pain; - PSHx: none; - Social history: Smoking status: Patient states was never smoker of tobacco. No barriers to communication noted, The patient speaks fluent Hungarian. - Family history: Not pertinent. - : The pt / caregiver states he / she is not on anticoagulants. Unable to Verify Home Med List with the patient / caregiver. - Exposure Risk Screening:: None identified. Vital Signs: 05/31 09:36 BP 126 / 88; Pulse 84; Resp 18; Temp 98(O); Pulse Ox 99% ; mk4 15:12 BP 111 / 65; Pulse 100; Resp 20 S; Temp 97.9(O); Pulse Ox 98% on R/A; ms2 MDM: 09:27 Consult PFS/PSA/Events Solutions Consultant ordered. sd1 09:27 Consult PFS/PSA/Events Solutions Consultant: Patient's case requires discussion with on-call sd1 Psychiatrist ordered. 09:27 PSA/PFS to call Nursing Rn Travel, to enter patient data [place] Safe [place] if patient sd1 involuntarily admitted or transferred for SI or HI ordered. 09:27 Confirm accurate psychiatric medication list and times of last dosage ordered. sd1 09:27 Detain Pt Until Medically/PFS Cleared ordered. sd1 09:29 Acetaminophen Level Ordered. EDMS 09:29 Basic Metabolic Profile Ordered. EDMS 09:29 Complete Blood Count Ordered. EDMS 09:29 Drug Eval Toxicology ED Only Ordered. EDMS 09:29 Ethyl Alcohol (ethanol) Ordered. EDMS 09:29 Liver Profile Ordered. EDMS 09:29 Salicylate Level Ordered. EDMS 09:29 Thyroid Stimulating Hormone Ordered. EDMS 10:16 REGULAR DIET ROOM SERVICE ED+DIET ordered. EDMS 10:36 Acetaminophen Level Reviewed. sd1 10:36 Basic Metabolic Profile Reviewed. sd1 10:36 Liver Profile Reviewed. sd1 10:36 Salicylate Level Reviewed. sd1 10:36 Complete Blood Count Reviewed. sd1 10:36 Drug Eval Toxicology ED Only Reviewed. sd1 10:36 Ethyl Alcohol (ethanol) Reviewed. sd1 10:36 Thyroid Stimulating Hormone Reviewed. sd1 11:42 [place] [place] Agreement was scanned into [employer] and attached to record. jp5 11:42 Financial registration complete. jp5 11:49 REGULAR DIET ROOM SERVICE ED+DIET ordered. EDMS 12:22 Admit to IMHU: ordered. EDMS 12:29 [facility] Legal paperwork was scanned into [employer] and attached to record. ml4 15:45 REGULAR DIET ordered. EDMS 06/01 12:24 T-Sheet-- Draft Copy was scanned into [employer] and attached to record. gb 12:25 PCR was scanned into [employer] and attached to record. gb Signatures: Dispatcher [employer] EDKY Laura Lopez MD MD sd1 Lawson Vee,RN RN ms2 Saba Mcadams, Reg Reg gb Ines Stout, PSA PSA ml4 Marianna Chau RN RN 4 Sheryl Donahue jp5 The chart was reviewed and I authenticate all verbal orders and agree with the evaluation and treatment provided.Attachments: 05/31 11:42 [facility] [place] Agreement jp5 06/01 12:24 T-Sheet-- Draft Copy gb Chart Complete MTDD
--- NOTE | 2016-06-02 17:09 | EDDOCDS ---
Nurse's Notes [facility] Name: Kesha Darby Age: 25 yrs Sex: Male : 1990 Arrival Date: 05/31/2016 Time: 09:[address] [facility] Private MD: Diagnosis: Suicidal ideations Presentation: 05/31 09:25 Presenting complaint: Patient states: sent from [facility]. Mental [facility] Health Triage Level: Level 2: The patient displays active suicidal ideations. Adult Sepsis Screening: The patient does not have new or worsening altered mentation. Patient's respiratory rate is less than 22. Systolic blood pressure is greater than 100. Patient has a qSOFA score of 0- Negative Sepsis Screen. Suicide/Homicide risk assessment- The patient admits to and/or has been reported to be having suicidal ideations. 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 Transition of care: patient was received from [facility]. 09:25 Acuity: HANS Level 3 [facility] 09:25 Method Of Arrival: Ambulance [facility] Triage Assessment: 09:36 General: Appears in no apparent distress. Pain: Location: reports chronic back pain. 4 HIV screening NA for this visit Offered previously. Historical: - Allergies: no known allergies; - Home Meds: 1. Nortriptyline Oral Unknown once daily 2. eye drops for dry eye 3. desmo something for chronic polyuria 4. 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 No barriers to communication noted, The patient speaks fluent Honduran. - Family history: Not pertinent. - : The pt / caregiver states he / she is not on anticoagulants. Unable to Verify Home Med List with the patient / caregiver. - Exposure Risk Screening:: None identified. Screenin:55 Screening information is obtained from the patient. Fall risk: No risks identified. ms2 Assistance ADL's: requires no assistance with activities of daily living. Abuse/DV Screen: The patient / caregiver reports he/she is: not in a situation that causes fear, pain or injury. Nutritional screening: No deficits noted. Advance Directives: Currently, there is no health care proxy. There is no active DNR order. There is no living will. There is no Power of Patient Transportation Driver. Advance directive information has not previously been placed in an [facility] medical record. Further advance directive information is declined. home support is adequate. Assessment: 09:37 General: Appears in no apparent distress, comfortable, Behavior is cooperative, dwg pleasant, quiet. General: Calm and cooperative, offers no complaints.. Pain: Denies pain. Neurological: Level of Consciousness is awake, alert, Oriented to person, place, time. Respiratory: Airway is patent Respiratory effort is even, unlabored, Respiratory pattern is regular, symmetrical. 10:16 Reassessment: Patient anxious and appears scared - had to think if he had pain or not kcs and then stated "no". Was agreeable to something to eat - ordered. Denies any other needs. Respirations easy. Color = pink. Security observing.. 10:47 Reassessment: Patient eating. escort at bedside. Security observing.. kcs 11:50 General: Appears in no apparent distress, comfortable, sitting in chair -F Drun ms2 personnel sitting with pt. Behavior is cooperative. Neurological: Level of Consciousness is awake, alert, obeys commands. Respiratory: No deficits noted. Airway is patent Respiratory effort is even, unlabored, Respiratory pattern is regular, symmetrical. GI: Abdomen is flat, non- distended. Derm: Skin is pink, warm & dry. Musculoskeletal: Range of motion intact in all extremities. 12:31 General: Appears comfortable, Behavior is cooperative, remains with pt. ms2 Neurological: No deficits noted. Respiratory: No deficits noted. :. Derm: Skin is pink, warm & dry. 13:15 General: Appears in no apparent distress, comfortable, Behavior is cooperative, ms2 with pt. Neurological: No deficits noted. Respiratory: Respiratory effort is even, unlabored. Derm: Skin is pink, warm & dry. Musculoskeletal: Range of motion intact in all extremities. 14:35 General: Appears in no apparent distress, Behavior is cooperative. Neurological: No ms2 deficits noted. Respiratory: Respiratory effort is even, unlabored, Respiratory pattern is regular, symmetrical. Derm: Skin is pink, warm & dry. Musculoskeletal: No deficits noted. 15:13 General: Appears in no apparent distress, comfortable, Behavior is crying. ms2 Neurological: No deficits noted. Respiratory: Respiratory effort is even, unlabored. Derm: Skin is pink, warm & dry. Derm: No deficits noted. 15:13 Adult Sepsis Screening: The patient does not have new or worsening altered mentation. ms2 Patient's respiratory rate is less than 22. Systolic blood pressure is greater than 100. Patient has a qSOFA score of 0- Negative Sepsis Screen. 15:38 General: Appears in no apparent distress, comfortable, Behavior is cooperative, ms2 pleasant. Neurological: Level of Consciousness is awake, alert, obeys commands. Respiratory: No deficits noted. Airway is patent Respiratory effort is even, unlabored, Respiratory pattern is regular, symmetrical. GI: Abdomen is flat, non- distended. Derm: Skin is pink, warm & dry. Musculoskeletal: Range of motion intact in all extremities. Mental Health Eval: 11:42 Mental health consult is initiated at 11:30. 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 [facility] Behavioral Health: The patient is not an established patient of [facility] Behavioral Health. Referral Information: Evaluation referral is generated by Clinical Psychologist(Jamal Sullivan) \\T\\ FDS. The patient was referred for evaluation because thoughts of suicide with plan OD due to on-going stressors . Subjective: The patients chief complaint is pt states, "I need to be hospitalized." Pt reports suffering from thoughts of suicide for awhile, however thoughts are getting increasingly more severe. Admits he's wanting to kill himself with plan to OD. Pt states, "I have lots of meds I can take to kill myself." Admits 5 months ago, he attempted suicide by OD, but refuses to explain in detail due to feeling embarrassed. States he never received tx and never told anyone until today. Suicidal triggers include distress related to his divorce and occupational stressors. His ex and 2 year old daughter reside in [place] and states, "I've lost everything." He reports unable to sleep due to missing his daughter too much and states, "everyday is a struggle and I want to ." Pt is very vague while speaking about occupational stressors and refuses to elaborate on specific details. In addition to SI, pt reports suffering from AH and describes them as "they are behind me and calling my name." . Delusions are denied. Patient's mood is anxious, depressed, Auditory Hallucinations are reported by the patient. Mental Health history: depression, Mental Health Admissions: None. Current Outpatient Mental Health Services: Psychiatrist / Agency: Jamal Sullivan/[facility], Last seen today . Therapist / Agency: [facility] . Current living environment is Family / Home Support: poor, but parents are here on visiting pt on [place]. The patient currently lives alone . The patient is . Patient presents to Emergency Department with the following symptoms within the past 2 weeks: anxiety, decreased appetite, depressed mood, feelings of helplessness/hopelessness, marital problem, poor concentration, poor impulse control, relational problem, sleep disturbance - insomnia, suicidal ideation with plan for pills. Substance abuse: Pt denies. Mental status exam: Patients appearance is appropriate, Patient's behavior is cooperative, Speech is normal. Affect is flat. Mood is depressed. Auditory Hallucinations are reported by the patient. Appetite is poor. Memory is good. Energy level is normal. Content of thought is depressive. due to thoughts of suicide with plan. Thought process is intact. Cognitive level is oriented to person, place, time and situation Patient's insight is poor. Judgement is poor. Rapport with interviewer is good. Suicidal Ideation present with a plan to kill self by pills. Homicidal ideation is denied. Disposition: Medically cleared for disposition by Laura Lopez MD Psychiatric Consult is performed by phone with Dr Qamar Martin MD. [facility] Admission Criteria: The patient is experiencing suicidal ideation. The patient requires continuous observation and/or control to protect self, others or property. The patient's care requires a multi-modal treatment plan under close supervision and coordination due to the complexity and severity of the patient's symptoms. The patient requires administration and monitoring of psychoactive medications by skilled medical providers due to the side effects of the psychoactive medications or significant dosage adjustments. Legal Status: Patient's legal status will be Emergency admission: . [place] is [place] because the patient does not display any suicidal or homicidal ideations and does not pose a risk to self or others. DSM-V Differential Diagnosis: Major Depressive Disorder severe (F33.2). Insurance Pre-Certification: Not Required, not required, tri-care . Narrative: Notice of Status and Rights, FAQ, and Bill of Rights was given at bedside. Awaiting: transfer to [facility]. Vital Signs: 09:36 BP 126 / 88; Pulse 84; Resp 18; Temp 98(O); Pulse Ox 99% ; mk4 15:12 BP 111 / 65; Pulse 100; Resp 20 S; Temp 97.9(O); Pulse Ox 98% on R/A; ms2 Vitals: 09:36 Log In Time N/A - ambulance arrival. mk4 ED Course: 09:20 Patient visited by Sheryl Donahue. jp5 09:20 Patient moved to Waiting jp5 09:22 Patient moved to [facility] dwg 09:26 Triage Initiated mk4 09:27 Laura Lopez MD is Attending Physician. sd1 09:27 Patient visited by Laura Lopez MD. sd1 09:30 Patient visited by Ko Contreras Security Aide. pjf 09:37 Acetaminophen Level Sent. dwg 09:37 Basic Metabolic Profile Sent. dwg 09:37 Complete Blood Count Sent. dwg 09:37 Drug Eval Toxicology ED Only Sent. dwg 09:37 Ethyl Alcohol (ethanol) Sent. dwg 09:37 Liver Profile Sent. dwg 09:37 Salicylate Level Sent. dwg 09:37 Thyroid Stimulating Hormone Sent. dwg 09:37 Labs drawn. (by ED staff). Sent per order to lab. Urine collected. Clean catch dwg specimen. Urine specimen sent to lab. 09:38 Patient visited by Daniel Reyes RN. dwg 09:40 Pt greeted and oriented to ED. Patient advised of names of staff involved in care, pjf location of call kwan, wait times and NPO status. Accompanied by ems, Patient has correct armband on for positive identification. Placed in psych safe attire. Bed in low position. Call light in reach. Side rails up X 1. Security observing. Property removed, secured in belongings bag- Placed in locker #2. Door closed. Noise minimized. Visitors limited. Report received from rn - psych. triage level #2, +si, cooperative \\T\\ this time. The patient / caregiver is instructed regarding the plan of care and ED course. Psych Safety Check: Location: Psych Room. 10:05 Patient visited by Ko Contreras Security Aide. pjf 10:17 Patient visited by Ko Contreras Security Aide. pjf 10:29 Patient visited by Ko Contreras Security Aide. pjf 10:45 Patient visited by Ko Contreras Security Aide. pjf 11:01 Patient visited by Ko Contreras Security Aide. pjf 11:15 Patient visited by Ko Contreras Security Aide. pjf 11:32 Patient visited by Ko Contreras Security Aidradha. pjf 11:42 [facility] Payment Agreement was scanned into [employer] and attached to record. jp5 11:46 Patient visited by Ko Contreras Security Aidradha. pjf 11:50 The patient / caregiver is instructed regarding the plan of care and ED course. ms2 Security observing. 11:55 The patient / caregiver is instructed regarding the plan of care and ED course. ms2 Security observing. 11:59 Patient visited by Ko Contreras Security Aidradha. pjf 12:12 Patient visited by Ko Contreras Security Aide. pjf 12:16 Qamar Martin MD is Hospitalizing Provider. sd1 12:29 [facility] Legal paperwork was scanned into [employer] and attached to record. ml4 12:31 The patient / caregiver is instructed regarding the plan of care and ED course. ms2 Security observing. 13:02 Patient visited by Ko Contreras Security Aidradha. pjf 13:14 Patient visited by Ko Contreras Security Aidradha. pjf 13:15 Psych Safety Check: Location: Psych Room. Visual Assessment: Cooperative. pjf 13:15 The patient / caregiver is instructed regarding the plan of care and ED course. ms2 Security observing. 13:30 Psych Safety Check: Location: Psych Room. Visual Assessment: Cooperative. pjf 13:45 Psych Safety Check: Location: Psych Room. Visual Assessment: Cooperative. pjf 14:00 Psych Safety Check: Location: Psych Room. Visual Assessment: Cooperative. pjf 14:15 Psych Safety Check: Location: Psych Room. Visual Assessment: Cooperative. pjf 14:29 Patient name changed from Himal\\S\\\\S\\Pangeni\\S\\ to Himal\\S\\ \\S\\Pangeni. EDMS 14:30 Psych Safety Check: Location: Psych Room. Visual Assessment: Cooperative. pjf 14:35 The patient / caregiver is instructed regarding the plan of care and ED course. ms2 Security observing. 14:49 Patient visited by Ko Contreras Security Aide. pjf 15:12 Patient visited by Lawson Vee RN. ms2 15:13 The patient / caregiver is instructed regarding the plan of care and ED course. ms2 Security observing. 15:15 Patient visited by Lawson Vee RN. ms2 15:31 Patient visited by Ko Contreras Security Aide. pjf 15:39 The patient / caregiver is instructed regarding the plan of care and ED course. ms2 Security observing. 15:39 No IV's were initiated during this patient's visit. No procedures done that require ms2 assistance. 06/01 12:24 T-Sheet-- Draft Copy was scanned into [employer] and attached to record. gb 12:25 PCR was scanned into [employer] and attached to record. gb Attachments: 12:29 [facility] Legal paperwork ml4 Order Results: Lab Order: Acetaminophen Level; SPEC'M 05/31/16 09:35 Test: ACETAMINOPHEN LEVEL; Value: < 2.0; Range: 10.0-30.0; Abnormal: Below low normal; Units: UG/ML; Status: F Lab Order: Basic Metabolic Profile; SPEC'M 05/31/16 09:35 Test: GLUCOSE, FASTING; Value: 95; Range: 70-105; Units: MG/DL; Status: F Test: BLOOD UREA NITROGEN; Value: 15; Range: 7-18; Units: MG/DL; Status: F Test: CREATININE FOR GFR; Value: 1.04; Range: 0.70-1.30; Units: MG/DL; Status: F Test: GLOMERULAR FILTRATION RATE; Value: > 60.0; Range: >60; Status: F Test: SODIUM LEVEL; Value: 140; Range: 136-145; Units: MEQ/L; Status: F Test: POTASSIUM SERUM; Value: 4.4; Range: 3.5-5.1; Units: MEQ/L; Status: F Test: CHLORIDE LEVEL; Value: 102; Range: 98-107; Units: MEQ/L; Status: F Test: CARBON DIOXIDE LEVEL; Value: 32; Range: 21-32; Units: MEQ/L; Status: F Test: ANION GAP; Value: 6; Range: 8-16; Abnormal: Below low normal; Units: MEQ/L; Status: F Test: CALCIUM LEVEL; Value: 9.0; Range: 8.5-10.1; Units: MG/DL; Status: F Test Note: ; Units are mL/min/1.73 m2 Chronic Kidney Disease Staging per NKF: Stage I & II GFR >=60 Normal to Mildly Decreased Stage III GFR 30-59 Moderately Decreased Stage IV GFR 15-29 Severely Decreased Stage V GFR <15 Very Little GFR Left ESRD GFR <15 on [facility] Lab Order: Complete Blood Count; SPEC'M 05/31/16 09:35 Test: WHITE BLOOD COUNT; Value: 4.8; Range: 4.0-10.0; Units: K/mm3; Status: F Test: RED BLOOD COUNT; Value: 5.87; Range: 4.30-6.10; Units: M/mm3; Status: F Test: HEMOGLOBIN; Value: 17.2; Range: 14.0-18.0; Units: g/dl; Status: F Test: HEMATOCRIT; Value: 47.4; Range: 42.0-52.0; Units: %; Status: F Test: MEAN CORPUSCULAR VOLUME; Value: 80.7; Range: 80.0-96.0; Units: fl; Status: F Test: MEAN CORPUSCULAR HEMOGLOBIN; Value: 29.4; Range: 27.0-33.0; Units: pg; Status: F Test: MEAN CORPUSCULAR HGB CONC; Value: 36.4; Range: 32.0-36.5; Units: g/dl; Status: F Test: RED CELL DISTRIBUTION WIDTH; Value: 12.8; Range: 11.5-14.5; Units: %; Status: F Test: PLATELET COUNT, AUTOMATED; Value: 178; Range: 150-450; Units: k/mm3; Status: F Lab Order: Drug Eval Toxicology ED Only; SPEC'M 05/31/16 09:30 Test: AMPHETAMINES LEVEL URINE; Value: NEGATIVE; Range: NEGATIVE; Status: F Test: BARBITURATES URINE; Value: NEGATIVE; Range: NEGATIVE; Status: F Test: BENZODIAZEPINES URINE; Value: NEGATIVE; Range: NEGATIVE; Status: F Test: CANNABINOIDS URINE; Value: NEGATIVE; Range: NEGATIVE; Status: F Test: COCAINE METABOLITE URINE; Value: NEGATIVE; Range: NEGATIVE; Status: F Test: METHADONE URINE; Value: NEGATIVE; Range: NEGATIVE; Status: F Test: OPIATES URINE; Value: NEGATIVE; Range: NEGATIVE; Status: F Test: TRICYCLIC ANTIDEPRESS URINE; Value: NEGATIVE; Range: NEGATIVE; Status: F Test Note: ; ALL PRESUMPTIVE POSITIVE FINDINGS ARE UNCONFIRMED NORMAL VALUES THRESHOLD IN NG/ML AMPHETAMINES 1000 METHAMPHETAMINES 1000 BARBITURATES 300 BENZODIAZEPINES 300 CANNABINOIDS (THC) 50 COCAINE METABOLITE 300 METHADONE 300 OPIATES 300 PHENCYCLIDINE 25 TRICYCLIC ANTIDEPRESSANTS 1000 RESULTS ARE FOR MEDICAL PURPOSES ONLY. ALL URINE SPECIMENS WILL BE SAVED FOR 3 DAYS. IF CONFIRMATION OF A PRESUMPTIVE POSTIVE SCREEN RESULT IS DESIRED, CALL CHEMISTRY ([phone]) AND REQUEST URINE TO BE SENT TO REFERENCE LAB. FOR A LIST OF CLOSELY RELATED COMPOUNDS PLEASE CALL THE LAB. Lab Order: Ethyl Alcohol (ethanol); SPEC' 05/31/16 09:35 Test: ETHYL ALCOHOL (ETHANOL); Value: < 0.003; Range: 0.000-0.010; Units: %; Status: F Lab Order: Liver Profile; SPEC' 05/31/16 09:35 Test: AST/SGOT; Value: 28; Range: 15-37; Units: U/L; Status: F Test: ALT/SGPT; Value: 53; Range: 12-78; Units: U/L; Status: F Test: ALKALINE PHOSPHATASE; Value: 82; Range: 45-117; Units: U/L; Status: F Test: BILIRUBIN,TOTAL; Value: 1.7; Range: 0.2-1.0; Abnormal: Above high normal; Units: MG/DL; Status: F Test: BILIRUBIN,DIRECT; Value: 0.3; Range: 0.0-0.2; Abnormal: Above high normal; Units: MG/DL; Status: F Test: TOTAL PROTEIN; Value: 7.9; Range: 6.4-8.2; Units: GM/DL; Status: F Test: ALBUMIN; Value: 4.8; Range: 3.2-5.2; Units: GM/DL; Status: F Test: ALBUMIN/GLOBULIN RATIO; Value: 1.55; Range: 1.00-1.93; Status: F Lab Order: Salicylate Level; SPEC' 05/31/16 09:35 Test: SALICYLATE LEVEL; Value: < 1.7; Range: 5.0-30.0; Abnormal: Below low normal; Units: MG/DL; Status: F Lab Order: Thyroid Stimulating Hormone; SPEC'M 05/31/16 09:35 Test: THYROID STIMULATING HORMONE; Value: 2.280; Range: 0.358-3.740; Units: uIU/ML; Status: F Outcome: 05/31 12:16 Decision to Hospitalize by Provider. sd1 15:39 Discharge Assessment: patient administered narcotics - no. The following High Risk ms2 Discharge criteria are identified: None. Admitted to Psych accompanied by tech, via wheelchair, with chart. Condition: stable. No special radiology studies were completed. 16:08 Patient left the ED. ms2 Signatures: Dispatcher [employer] EDMS Laura Lopez MD MD sd1 Esperanza Nair, RN RN Lawson Light RN RN ms2 Daniel Reyes, RN RN Saba Mccracken, Reg Reg Ko Contreras, Security Aide [facility] Ines Stout, PSA PSA ml4 Marianna Chau RN RN 4 Sheryl Donahue jp Chart Complete PAIGE
[2016-06-02 18:00] VITALS: BP_SYST 101; BP_SYST 133; BP_DIAS 56; BP_DIAS 87
[2016-06-02] MEDS: MOM 30ML SUSPENSION UDC PO PRN (19:00)
[2016-06-02] MEDS: NORTRIPTYLINE 25 MG CAP PO SCH (21:18)
[2016-06-02] MEDS: DESMOPRESSIN ACETATE 0.1 MG TAB PO SCH (21:19)
--- NOTE | 2016-06-03 04:22 | IPN ---
DATE: 06/02/2016 SUBJECTIVE: "I feel about the same." OBJECTIVE: Patient reports some degree of lightheadedness after he took the Pamelor. No other side effects. Patient reports that he slept for hours. I discussed the treatment plan with the patient, and since he is having some degree of side effect from the Pamelor, I told him to hold on the trazodone as needed for insomnia to see if he tolerates well this medication. MENTAL STATUS EXAMINATION: Patient is dressed in [facility]. Patient is cooperative. Speech is slow and monotone. Mood is depressed and anxious. Affect is congruent with mood. No delusions or hallucinations. Short term and halfway memory are intact. Patient is fully oriented. Thinking is logical. Thought content is appropriate. Patient is able to contract for safety, and denies suicidal of homicidal ideation during the interview. Insight and judgment is fair. ASSESSMENT: 1. Depression. 2. Suicidal ideation. 3. Insomnia. PLAN: 1. Continue with Pamelor 25 mg by mouth at bedtime. 2. Continue with trazodone 50 mg by mouth at bedtime as needed for insomnia. 3. Continue with Vistaril as needed for anxiety. 4. Continue medication management, individual and group therapy.
[2016-06-03 06:50] VITALS: BP 100/59
[2016-06-03 18:00] VITALS: BP 118/72
--- NOTE | 2016-06-03 19:51 | IPN ---
DATE: 06/03/2016 SUBJECTIVE: "I'm about the same." OBJECTIVE: The patient continues with some degree of lightheadedness after he takes the nortriptyline; however, this side effect has decreased in severity from yesterday. I have recommended to hold the trazodone until his body tolerates better the above medication. The patient slept 4-5 hours last night. MENTAL STATUS EXAMINATION: The patient is dressed in [facility]. The patient is cooperative, has fair eye contact. Speech is slow and monotone. Mood is depressed and anxious. Affect is congruent with mood. No delusions or hallucinations. Short and long-term memory are intact. The patient is fully oriented. Associations are intact. Thinking is logical. Thought content is appropriate. The patient is able to contract for safety and denies suicidal or homicidal ideations during the interview. Insight and judgment are fair. ASSESSMENT: 1. Depression. 2. Suicidal ideation. 3. Insomnia. PLAN: 1. Continue Pamelor 25 mg by mouth at bedtime. 2. Continue trazodone 50 mg by mouth at bedtime as needed for insomnia. 3. Continue Vistaril as needed for anxiety. 4. Continue medication management, individual and group therapy.
[2016-06-03] MEDS: NORTRIPTYLINE 25 MG CAP PO SCH (21:03)
[2016-06-03] MEDS: DESMOPRESSIN ACETATE 0.1 MG TAB PO SCH (21:03)
[2016-06-04 06:38] VITALS: BP 137/78
--- NOTE | 2016-06-04 11:14 | IPNPDOC ---
Assessment/Plan Date Seen The patient was seen on 06/04/16. Problems Problems: (1) Urinary frequency Status: Chronic Problem Text: * Patient has been evaluated by [facility] urology * 24-hour urine collection indicated 5.8 L according to Urology office note. * According to office note renal ultrasound was unremarkable. Prevoid 311 mL, emptied completely. * Has appointment scheduled with nephrology 07/04/16, contacted Nephrology 06/01/16 and confirmed appt. * Patient currently remains on DDAVP 0.2 mg at bedtime. * Recheck BMP. * Check UA/urine culture. * discuss further recommendations with Dr Palacios. (2) Polyuria Status: Chronic Plan / VTE VTE Prophylaxis Ordered?: No (ambulatory) Subjective Review of Systems CC/HPI The patient is a 25-year-old male admitted with a reason for visit of Unspecified Depressive D/O. Objective Vital Signs/I&O Vital Signs Date Time Temp Pulse Resp B/P Pulse Ox O2 Delivery O2 Flow Rate FiO2 06/04/16 06:38 95.4 71 16 137/78 05/31/16 18:00 Room Air Sulema Sandoval Jun 04, 2016 11:14
--- NOTE | 2016-06-04 13:53 | IPNPDOC ---
[facility] Progress Note Progress Note DATE OF SERVICE: 06/04/16 HISTORY: "I've been in behavioral health 8-9 months already, was told to come over here". 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 Patient states he is currently going through a divorce, is missing his 2-year-old daughter who lives with his in [place], and doesn't feel he can function properly at work. Patient feels he is very overwhelmed and stressed because of all of this. Patient is also concerned as he feels [facility] is holding up his visits for his medical conditions. Patient states most worrisome are his urology and kidney issues which he has been trying to see a truck dispatcher since January 2016. Patient is also worried that he will be deployed before he can get his issues addressed. PAST PSYCHIATRIC HISTORY: Patient states he's been in behavioral health services at [employer] for the last 8-9 months. Patient reports he started the services at the beginning of his divorce process. Patient denies any prior psychiatric history. ALLERGIES: Please see below. HOME MEDICATIONS: Please see below. Patient denies PAST MEDICAL HISTORY: 1. Polyuria 2. Migraine headaches 3. Dizziness FAMILY PSYCHIATRIC HISTORY: Patient denies. 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 Patient is currently from his who lives in [place] with their 2-year-old daughter. Patient reports that his parents are currently living with him. Patient states he has one brother and 2 sisters that are supportive but live in [facility]. 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 SUBSTANCE ABUSE HISTORY: Patient states he was involved in the [employer] program until last year. Patient reports he did have a drinking problem but doesn't drink at all now. LEGAL HISTORY: Denies. VITAL SIGNS: See below. Temperature 95.4, pulse 71, respiratory rate 16, blood pressure 137/78. LABORATORY DATA: Please see below. Admission UDS was negative. GFR is greater than 60, total bili is 1.7 which is high, direct bili 0.3 which is high, anion gap is 6 which is low. CURRENT MEDICATIONS: See below. Trazodone 50 mg po qhs prn for sleep, Hydroxyzine hcl 50 mg po q 6 h prn for anxiety/agitation. MENTAL STATUS EXAMINATION: Patient is a 25 year-old male who appears his stated age. Patient is observed in the lounge with peers. Patient gets up readily to speak with provider when asked. Patient is pleasant and cooperative. Patient is wearing hospital scrubs and T-shirt, has average grooming, is of normal weight and build. Speech: Is of normal rate, volume. Patient is articulate, coherent and spontaneous. Language skills: Intact. Thought processes: Clearing, partially goal-directed. Thought content: Rational, logical, tangential times. Abstract reasoning, and computation: Adequate. Description of associations: Intact. Description of abnormal or psychotic thoughts: Patient denies hallucinations, however initially stated he had auditory hallucinations with someone behind him calling his name. Pt. now states he continually hears his daughter and/or "someone that wants to attack me". Patient denies delusions, paranoia, obsessions or compulsions. Pt. does state he has a severe fear of the dark. Pt. denies any reason for this when asked. Patient denies any homicidal or suicidal ideations. Patient does not feel he is preoccupied, except with his frequent urination. Provider tried unsuccessfully to get nephrology consult while he was here and an inpt. Pt. states he is over frustrated as he literally has to urinate every 30 minutes, a quantity of 150-300 cc's. Patient has no thoughts of self-harm such as cutting. Judgment: Fair. Insight: Fair. Orientation to: Time, person, place and surroundings. Recent and remote memory: "OK". Attention span and concentration: Fair. Language: Normal. Fund of knowledge: Adequate. Mood: "I guess normal, I'm improving each day". Affect: Appropriate, constricted, anxious. DIAGNOSES: 1. Depressive disorder, single-moderate. 2. 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 Patient feels his biggest stressors are his current health issues that he can't get any answers on. This is followed by the impending divorce with his and inability to see his daughter that often. Patient is also worried about upcoming deployment especially if he is not yet medically cleared. Patient had not yet been put on any meds by behavioral health. Patient states he slept well after he took the meds we ordered him here. Patient reports he was able to get 4-5 hours of sleep last night. My sleep , " It was OK, it wasn't that bad". Continued to encourage patient that ideally he should be getting 6-8 hours of sleep most nights. Patient does report having nightmares/night terrors during last nights sleep. Pt. states that he used to hear the voices of his daughter or someone that wanted to attack him, now his sleep is disrupted. His nightmares have been an increasing problem recently which affect his sleep. MANAGEMENT PLAN: Patient to take medications as ordered for decrease in symptoms. Maintain safety precautions. Patient to attend groups and participate in unit programming to develop effective coping strategies. Patient to be engaged in discharge planning process to ensure safe and effective discharge plan. Patient to follow-up with primary care physician upon discharge. Patient to resume therapy and medication management upon discharge. Continue Trazodone 50 mg po qhs prn - to change to scheduled med for sleep, Hydroxyzine hcl 50 mg po q 6 h prn for anxiety/agitation, Start prazosin for nightmares/night terrors. TIME SPENT: 25 minutes. Vital Signs Vital Signs Date Time Temp Pulse Resp B/P Pulse Ox O2 Delivery O2 Flow Rate FiO2 06/04/16 06:38 95.4 71 16 137/78 05/31/16 18:00 Room Air Current Medications Current Medications Medications (Trade) Dose Ordered Sig/Narcisa Route PRN Reason Start Time Stop Time Status Last Admin Dose Admin Acetaminophen (Tylenol Tab) 650 mg Q6HP PRN PO HEADACHE or DISCOMFORT 05/31/16 15:45 06/30/16 15:44 06/01/16 11:49 Al Hydrox/Mg Hydrox/Simethicone (Mylanta) 30 ml Q4HP PRN PO HEARTBURN/INDIGESTION 05/31/16 15:45 06/30/16 15:44 Artificial Tears (Akwa Tears) 2 drop QIDP PRN OU DRY EYES 05/31/16 15:45 06/30/16 15:44 Desmopressin Acetate (Ddavp) 0.2 mg QHS PO 05/31/16 21:00 06/30/16 20:59 06/03/16 21:03 Home Med (Med Rec Complete!) ASDIRECTED XX 05/31/16 14:15 05/31/16 14:15 DC Hydroxyzine HCl (Vistaril) 25 mg Q6HP PRN PO ANXIETY/AGITATION 06/01/16 13:15 07/01/16 13:14 Magnesium Hydroxide (Milk Of Magnesia) 30 ml DAILYPRN PRN PO CONSTIPATION 05/31/16 15:45 06/30/16 15:44 06/02/16 19:00 Nortriptyline HCl (Pamelor) 25 mg QHS PO 05/31/16 21:00 06/30/16 20:59 06/03/16 21:03 Prazosin HCl (Minipress) 1 mg QHS PO 06/04/16 21:00 07/04/16 20:59 Trazodone HCl (Desyrel) 50 mg QHS PO 06/04/16 21:00 07/04/16 20:59 Trazodone HCl (Desyrel) 50 mg QHSP PRN PO INSOMNIA 05/31/16 15:45 06/04/16 11:52 DC Allergies Coded Allergies: No Known Drug Allergy (Unverified Allergy, Unknown, 05/31/16) VETO GALICIA NP Jun 04, 2016 13:53
[2016-06-04 18:28] VITALS: BP 107/64
[2016-06-04] MEDS: PRAZOSIN 1 MG CAP PO SCH (20:44)
[2016-06-04] MEDS: NORTRIPTYLINE 25 MG CAP PO SCH (20:44)
[2016-06-04] MEDS: traZODone 50 MG TAB PO SCH (20:45)
[2016-06-04] MEDS: DESMOPRESSIN ACETATE 0.1 MG TAB PO SCH (20:45)
[2016-06-05 06:34] VITALS: BP 120/66
[2016-06-05 06:56] LABS: ANION GAP 7 MEQ/L (8-16); BLOOD UREA NITROGEN 14 MG/DL (7-18); CARBON DIOXIDE LEVEL 31 MEQ/L (21-32); CHLORIDE LEVEL 103 MEQ/L (98-107); CREATININE FOR GFR 1.06 MG/DL (0.70-1.30); GLOMERULAR FILTRATION RATE > 60.0 (>60); GLUCOSE, FASTING 91 MG/DL (70-105); SODIUM LEVEL 141 MEQ/L (136-145)
--- NOTE | 2016-06-05 15:04 | IPNPDOC ---
[facility] [place] DATE OF SERVICE: 06/05/16 HISTORY: "I've been in behavioral health 8-9 months already, was told to come over here". 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 Patient feels he is very overwhelmed and stressed because of all of this. Patient is also concerned as he feels [facility] is holding up his visits for his medical conditions. Patient states most worrisome are his urology and kidney issues which he has been trying to see a blast furnace checker since January 2016. Patient is also worried that he will be deployed before he can get his issues addressed. PAST PSYCHIATRIC HISTORY: Patient states he's been in behavioral health services at [place] for the last 8-9 months. Patient reports he started the services at the beginning of his divorce process. Patient denies any prior psychiatric history. ALLERGIES: Please see below. HOME MEDICATIONS: Please see below. Patient denies. Pt. was prescribed nortriptyline for migraine relief. Pt. feels that after start of this, his symptoms worsened for his mental health issues. PAST MEDICAL HISTORY: 1. Polyuria 2. Migraine headaches 3. Dizziness FAMILY PSYCHIATRIC HISTORY: Patient denies. 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 Patient reports that his parents are currently living with him. Patient states he has one brother and 2 sisters that are supportive but live in [facility]. 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 SUBSTANCE ABUSE HISTORY: Patient states he was involved in the [employer] program until last year. Patient reports he did have a drinking problem but doesn't drink at all now. LEGAL HISTORY: Denies. VITAL SIGNS: See below. Temperature 96.2, pulse 81, respiratory rate 18, blood pressure 120/66. LABORATORY DATA: Please see below. Admission UDS was negative. GFR is greater than 60, total bili is 1.7 which is high, direct bili 0.3 which is high, anion gap is 6 which is low. CURRENT MEDICATIONS: See below. Trazodone 50 mg po qhs for sleep, Hydroxyzine hcl 50 mg po q 6 h prn for anxiety/agitation, prazosin 1 mg po qhs for nightmares/night terrors. MENTAL STATUS EXAMINATION: Patient is a 25 year-old male who appears his stated age. Patient is observed in the lounge with peers. Patient gets up readily to speak with provider when asked. Patient is pleasant and cooperative. Patient is wearing hospital scrubs and T-shirt, has average grooming, is of normal weight and build, ambulates with a steady gait. Speech: Is of normal rate, volume. Patient is articulate, coherent and spontaneous. Language skills: Intact. Thought processes: Clearer, goal- directed. Thought content: Rational, logical. Abstract reasoning, and computation: Adequate. Description of associations: Intact. Description of abnormal or psychotic thoughts: Patient denies hallucinations, however initially stated he had auditory hallucinations with someone behind him calling his name. Pt. now states he continually hears his daughter and/or "someone that wants to attack me". Pt. states after using prazosin last night, he did not have any of this. Patient denies delusions, paranoia, obsessions or compulsions. Pt. does state he has a severe fear of the dark. Pt. denies any reason for this when asked. Pt. states his racing thoughts are a little calmer , not as prevalent in his thought process. Patient denies any homicidal or suicidal ideations. Patient does not feel he is preoccupied, except with his frequent urination. Provider has tried unsuccessfully to get a nephrology consult while he was here as an inpt. Pt. states he is frustrated as he literally has to urinate every 30 minutes, a quantity of 150-300 cc's. Patient has no thoughts of self-harm such as cutting. Judgment: Fair. Insight: Fair. Oriented to: Time, person, place and surroundings. Recent and remote memory: "OK". Attention span and concentration: Fair. Language: Normal. Fund of knowledge: Adequate. Mood: "Good, I'm ready to go home". Affect: Appropriate, constricted, anxious. DIAGNOSES: 1. Depressive disorder, single-moderate. 2. 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 Patient feels his biggest stressors are his current health issues that he can't get any answers on. This is followed by the impending divorce with his and inability to see his daughter that often. Patient is also worried about upcoming deployment especially if he is not yet medically cleared. Patient had not yet been put on any meds by [facility]. Patient states he slept well after he took the meds we ordered him here. Patient reports he was able to get 7 hours of sleep last night. Pt. reports sleep was "Good", when asked. Pt. felt rested on waking. Continued to encourage patient that ideally he should be getting 6-8 hours of sleep most nights. Patient does report having no nightmares/night terrors during last nights sleep. Pt. states that he used to hear the voices of his daughter or someone that wanted to attack him, now his sleep had been disrupted. His nightmares have been an increasing problem recently which affect his qulity of sleep. Pt. 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 MANAGEMENT PLAN: Patient to take medications as ordered for decrease in symptoms. Maintain safety precautions. Patient to attend groups and participate in unit programming to develop effective coping strategies. Patient to be engaged in discharge planning process to ensure safe and effective discharge plan. Patient to follow-up with primary care physician upon discharge. Patient to resume therapy and medication management upon discharge. Continue Trazodone 50 mg po qhs prn for sleep, Hydroxyzine hcl 50 mg po q 6 h prn for anxiety/ agitation, prazosin 1 mg po qhs for nightmares/night terrors. TIME SPENT: 25 minutes. Vital Signs Vital Signs Date Time Temp Pulse Resp B/P Pulse Ox O2 Delivery O2 Flow Rate FiO2 06/05/16 06:34 96.2 81 18 120/66 05/31/16 18:00 Room Air Laboratory Data 24H Labs Laboratory Tests 2 06/04/16 18:55: Urine Amorphous Sediment , Urine Appearance CLEAR, Urine Color STRAW, Urine pH 6.0, Urine Specific [place] 1.004, Urine Protein NEGATIVE, Urine Glucose (UA) NEGATIVE, Urine Ketones NEGATIVE, Urine Urobilinogen 0.2, Urine Bilirubin NEGATIVE, Urine Leukocyte Esterase NEGATIVE, Urine Bacteria (Auto) NEGATIVE, Urine Blood NEGATIVE, Urine Calcium Carbonate Cryst(Auto) , Urine Calcium Oxalate Cryst (Auto) , Urine Calcium Phosphate [place] (Auto) , Urine Cellular Casts , Urine Cystine Crystals , Urine Granular Casts (Auto) , Urine Hyaline Casts (Auto) 0, Urine Leucine Crystals , Urine Mucus (Auto) , Urine Nitrite NEGATIVE, Urine Oval Fat Bodies (Auto) , Urine RBC (Auto) 0, Urine Renal Epithelial Cells , Urine Sperm (Auto) , Urine Squamous Epithelial Cells 0, Urine Transitional Epithelial Cells , Urine Trichomonas (Auto) , Urine Triple Phosphate Cryst (Auto) , Urine Tyrosine Crystals , Urine Uric Acid Crystals ( Auto) , Urine WBC (Auto) 0, Urine Waxy Casts (Auto) , Urine Yeast-Like Cells ( Auto) 06/05/16 06:12: Anion Gap 7L, Blood Urea Nitrogen 14, Creatinine 1.06, Sodium Level 141, Potassium Level 4.0, Chloride Level 103, Carbon Dioxide Level 31, Calcium Level 9.0, Glomerular Filtration Rate > 60.0 CBC/BMP Laboratory Tests 06/05/16 06:12 Calcium Level 9.0 Current Medications Current Medications Medications (Trade) Dose Ordered Sig/Narcisa Route PRN Reason Start Time Stop Time Status Last Admin Dose Admin Acetaminophen (Tylenol Tab) 650 mg Q6HP PRN PO HEADACHE or DISCOMFORT 05/31/16 15:45 06/30/16 15:44 06/01/16 11:49 Al Hydrox/Mg Hydrox/Simethicone (Mylanta) 30 ml Q4HP PRN PO HEARTBURN/INDIGESTION 05/31/16 15:45 06/30/16 15:44 Artificial Tears (Akwa Tears) 2 drop QIDP PRN OU DRY EYES 05/31/16 15:45 06/30/16 15:44 Desmopressin Acetate (Ddavp) 0.2 mg QHS PO 05/31/16 21:00 06/30/16 20:59 06/04/16 20:45 Home Med (Med Rec Complete!) ASDIRECTED XX 05/31/16 14:15 05/31/16 14:15 DC Hydroxyzine HCl (Vistaril) 25 mg Q6HP PRN PO ANXIETY/AGITATION 06/01/16 13:15 07/01/16 13:14 Magnesium Hydroxide (Milk Of Magnesia) 30 ml DAILYPRN PRN PO CONSTIPATION 05/31/16 15:45 06/30/16 15:44 06/02/16 19:00 Nortriptyline HCl (Pamelor) 25 mg QHS PO 05/31/16 21:00 06/30/16 20:59 06/04/16 20:44 Prazosin HCl (Minipress) 1 mg QHS PO 06/04/16 21:00 07/04/16 20:59 06/04/16 20:44 Trazodone HCl (Desyrel) 50 mg QHS PO 06/04/16 21:00 07/04/16 20:59 06/04/16 20:45 Trazodone HCl (Desyrel) 50 mg QHSP PRN PO INSOMNIA 05/31/16 15:45 06/04/16 11:52 DC Allergies Coded Allergies: No Known Drug Allergy (Unverified Allergy, Unknown, 05/31/16) VETO GALICIA NP Jun 05, 2016 15:04
[2016-06-05] MEDS ORDERED: TRAZO50TA PO (17:54)
[2016-06-05] MEDS ORDERED: MINI1CAP PO (17:54)
[2016-06-05] MEDS ORDERED: HYDR25T PO (17:54)
[2016-06-05 20:43] VITALS: BP 118/76
[2016-06-05] MEDS: PRAZOSIN 1 MG CAP PO SCH (20:43)
[2016-06-05] MEDS: traZODone 50 MG TAB PO SCH (20:43)
[2016-06-05] MEDS: DESMOPRESSIN ACETATE 0.1 MG TAB PO SCH (20:43)
[2016-06-05] MEDS: NORTRIPTYLINE 25 MG CAP PO SCH (20:43)
[2016-06-05 22:02] VITALS: BP 109/60
[2016-06-06 06:50] VITALS: BP 107/56
--- NOTE | 2016-06-06 15:03 | DS.PDOC ---
[facility] Discharge Summary Discharge Summary DATE OF ADMISSION: May 31, 2016 at 15:50 DATE OF DISCHARGE: Jun 06, 2016 at 10:50 DISCHARGE DIAGNOSES: 1. Depressive disorder, single-moderate. 2. Insomnia REASON FOR ADMISSION: "I've been in behavioral health 8-9 months already, was told to come over here". 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 Patient states he is currently going through a divorce, is missing his 2-year- old daughter who lives with his in [place], and doesn't feel he can function properly at work. Patient feels he is very overwhelmed and stressed because of all of this. Patient is also concerned as he feels [facility] is holding up his visits for his medical conditions. Patient states most worrisome are his urology and kidney issues which he has been trying to see a appliance service technician since January 2016. Patient is also worried that he will be deployed before he can get his issues addressed. PAST PSYCHIATRIC HISTORY: Patient states he's been in behavioral health services at [employer] for the last 8-9 months. Patient reports he started the services at the beginning of his divorce process. Patient denies any prior psychiatric history. ALLERGIES: Please see below. HOME MEDICATIONS: Please see below. Patient denies. Pt. was prescribed nortriptyline for migraine relief. Pt. feels that after start of this, his symptoms worsened for his mental health issues (SI, racing thoughts, tata), would like it discontinued from provider. PAST MEDICAL HISTORY: 1. Polyuria 2. Migraine headaches 3. Dizziness LABORATORY DATA: Please see below. Admission UDS was negative. On admission GFR is greater than 60, total bili is 1.7 which is high, direct bili 0.3 which is high, anion gap is 6 which is low. Medical PA to follow. FAMILY PSYCHIATRIC HISTORY: Patient denies. 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 Patient is currently from his who lives in [place] with their 2-year-old daughter. Patient reports that his parents are currently living with him. Patient states he has one brother and 2 sisters that are supportive but live in [facility]. 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 SUBSTANCE ABUSE HISTORY: Patient states he was involved in the [employer] program until last year. Patient reports he did have a drinking problem but doesn't drink at all now. LEGAL HISTORY: Denies. TREATMENT AND PROGRESS ON THE UNIT : Patient appears to have adjusted well to his time on the unit. Patient has been attending groups and participating in unit programming to develop better coping strategies. Patient has been engaged in the discharge planning process and chain of command meetings to make his discharge plan safe and effective. Patient has been in emotional and behavioral control for this hospitalization. Patient will continue to need therapy to deal with his personality issues on discharge. 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 Patient feels his biggest stressor is his current health issues that he can't get any answers on. This is followed by the impending divorce with his and inability to see his daughter that often. Patient is also worried about upcoming deployment especially if he is not yet medically cleared. Patient had not yet been put on any meds by [facility]. Patient states he slept well after he took the meds we ordered him here. Patient reports he was able to get 7 hours of sleep last night. Pt. reports sleep was "Good", when asked. Pt. felt rested on waking. Continued to encourage patient that ideally he should be getting 6-8 hours of sleep most nights. Patient does report having no nightmares/night terrors during last 2 nights sleep, since prazosin was started. Pt. states that he used to hear the voices of his daughter or someone that wanted to attack him and his sleep had been disrupted. His nightmares had been an increasing problem recently which affected his quality of sleep. Pt. reports Depression today is 1/ 10, anxiety is 1/10, both due to impending discharge. MENTAL STATUS EXAMINATION ON DISCHARGE: Patient is a 25 year-old male who appears his stated age. Patient is observed in bed, resting. Patient gets up readily to speak with provider when asked. Patient is pleasant and cooperative. Patient is wearing hospital scrubs and T- shirt, has average grooming, is of normal weight and build, ambulates with a steady gait. Speech: Is of normal rate, volume. Patient is articulate, coherent and spontaneous. Language skills: Intact. Thought processes: Clearer, goal- directed. Thought content: Rational, logical. Abstract reasoning, and computation: Adequate. Description of associations: Intact. Description of abnormal or psychotic thoughts: Patient denies hallucinations, however initially stated he had auditory hallucinations with someone behind him calling his name. Pt. now states he had "episodes" where he heard his daughter and/or "someone that wants to attack me". Pt. states after using prazosin the last 2 nights, he has not had any more of these episodes. Patient denies delusions, paranoia, obsessions or compulsions. Pt. does state he has a severe fear of the dark. Pt. denies any reason for this when asked. Pt. states his racing thoughts are "getting less", not as pronounced in his thought process. Patient denies any homicidal or suicidal ideations, is stable for discharge. Patient does not feel he is preoccupied, except with his frequent urination. Provider has tried unsuccessfully to get a nephrology consult while he was here as an inpt. Pt. states he is frustrated as he literally has to urinate every 30 minutes, a quantity of 150-300 cc's. There is no staff documentation that the patient's sleep is being disrupted due to these issues. Patient has no thoughts of self-harm such as cutting. Judgment: Fair. Insight: Fair. Oriented to: Time, person, place and surroundings. Recent and remote memory: "OK". Attention span and concentration: Fair. Language: Normal. Fund of knowledge: Adequate. Mood: "Good, I'm ready to go home". Affect: Appropriate, constricted, anxious. MEDICATIONS ON DISCHARGE: Trazodone 50 mg po qhs for sleep, Hydroxyzine hcl 50 mg po q 6 h prn for anxiety /agitation, prazosin 1 mg po qhs for nightmares/night terrors. Pt. was encouraged to speak with provider about discontinuing nortriptyline for migraines due to possible increase of SI, racing thoughts and tata. PLAN/FOLLOWUP ARRANGEMENTS: Patient to take medications as ordered for control of symptoms. Patient to follow-up with primary care physician upon discharge, appliance service technician as scheduled. Patient to resume therapy and medication management upon discharge. Continue Trazodone 50 mg po qhs prn for sleep, Hydroxyzine hcl 50 mg po q 6 h prn for anxiety/agitation, prazosin 1 mg po qhs for nightmares/ night terrors. The amount of time spent in the coordination of care for this patient was approximately 25 minutes. Vital Signs Vital Sign - Last 24 Hours 06/05/16 06/05/16 06/06/16 20:43 22:02 06:50 Temp 97.6 96.8 Pulse 94 76 Resp 16 16 B/P 118/76 109/60 107/56 Laboratory Data Microbiology Microbiology 06/04/16 Urine Culture - Final, Complete Medications Scheduled Desmopressin Acetate (Desmopressin Acetate) 0.2 Mg Tab 0.2 MG PO QHS ANTIDIURETIC (Reported) Nortriptyline HCl (Nortriptyline HCl) 25 Mg Cap 25 MG PO QHS DIZZINESS (Reported ) Prazosin HCl (Minipress) 1 Mg Cap #7 1 MG PO QHS Nightmares/Night Terrors Trazodone HCl (Trazodone HCl) 50 Mg Tab #7 50 MG PO QHS Insomnia Scheduled PRN Carboxymethylcellulose Sodium (Refresh Tears) 0.5 % Abelardo 0.5 % OU PRN PRN PRN DRY EYES (Reported) Hydroxyzine HCl (Hydroxyzine HCl) 25 Mg Tab #20 25 MG PO Q6HP PRN PRN ANXIETY/ AGITATION Allergies Coded Allergies: No Known Drug Allergy (Unverified Allergy, Unknown, 05/31/16) VETO GALICIA NP Jun 06, 2016 15:03
== END 2016-06-06 10:50 | disposition home or self-care (01) | DRG 885 ==
LOC: M ED 09:18 → M PSY 14:49
PROVIDERS: ADMIT Psychiatry & Neurology Psychiatry; ATTEND Psychiatry & Neurology Psychiatry
DX: F32.1 Major depressive disorder, single episode, moderate (principal); G47.00 Insomnia, unspecified; G43.909 Migraine, unspecified, not intractable, without status migrainosus; M54.5 Low back pain; R35.0 Frequency of micturition; R35.8 Other polyuria; Z79.899 Other long term (current) drug therapy

== ENCOUNTER → 2016-07-03 | Outpatient (REF) | payer OTHER ==
[~2016-07-03] MED LIST: DESM0.2T PO; HYDR25T PO; MINI1CAP PO; NORT25CA2 PO; REFR0.5D8 OU; TRAZO50TA PO
== END ==
LOC: M LAB REF 12:46
PROVIDERS: ATTEND Internal Medicine Nephrology
DX: E23.2 Diabetes insipidus (principal)

== ENCOUNTER → 2016-07-13 | Outpatient (CLI) | payer OTHER ==
[~2016-07-13] MED LIST changes: +GASTROGRAFIN SOLUTION 30ML (Q9963) As Ordered ONE; +ISOVUE-370 76% 100ML VIAL (Q9967) As Ordered ONE
--- NOTE | 2016-07-13 16:00 | REP ---
CT study of the abdomen and pelvis with IV and oral contrast: History: Generalized abdominal pain. No comparison studies. CT contrast dose: 100 ml of Isovue [address] findings: Digital preliminary regional sales trainer radiograph is unremarkable. Lung window settings demonstrate that the lung bases are clear. There is no evidence of pleural effusion or upper abdominal ascites. The liver is normal in size and homogeneous in texture. The spleen is at the upper range of normal in size measuring 13.7 cm in greatest dimension. Pancreas and gallbladder are unremarkable. No adrenal lesion is seen. The kidneys enhance symmetrically and are morphologically intact. Small and large intestinal bowel loops are normal in the upper abdomen. A normal appendix is seen filled with orally administered contrast. No abdominal mass or adenopathy is seen. Seminal vesicles, prostate and urinary bladder are intact. No abdominal wall defect is seen. No abnormal fluid collection or free air is seen. No bony destructive lesion noted. Impression: The spleen at the upper range of normal in size. Otherwise normal CT study abdomen and pelvis with IV and oral contrast. Signed by Santiago Flores MD 07/13/2016 05:01 P
== END ==
LOC: M RAD 12:52
PROVIDERS: ATTEND Internal Medicine Nephrology
DX: R10.84 Generalized abdominal pain (principal)
CPT/HCPCS: 74177; Q9963; Q9967

== ENCOUNTER 2016-07-24 12:51 | Observation (INO) | payer OTHER ==
[~2016-07-24] VITALS: Ht 165.1 cm; Wt 69.5 kg
[~2016-07-24 12:51] MED LIST changes: -GASTROGRAFIN SOLUTION 30ML (Q9963) As Ordered ONE; -ISOVUE-370 76% 100ML VIAL (Q9967) As Ordered ONE
[2016-07-24] MEDS ORDERED: ACETAMINOPHEN TAB 650MG DOSE (2X325MG) PO PRN (13:15)
[2016-07-24 13:40] VITALS: BP 133/76
[2016-07-24] MEDS ORDERED: hydrOXYzine 25 MG TAB PO PRN (14:00)
[2016-07-24] MEDS ORDERED: HYDR25T PO (14:27)
[2016-07-24 15:50] LABS: OSMOLALITY SERUM 286 MOSM/KG (275-295)
[2016-07-24 16:03] LABS: ALBUMIN 4.6 GM/DL (3.2-5.2); ANION GAP 7 MEQ/L (8-16); BLOOD UREA NITROGEN 12 MG/DL (7-18); CALCIUM LEVEL 9.2 MG/DL (8.5-10.1); CARBON DIOXIDE LEVEL 28 MEQ/L (21-32); CHLORIDE LEVEL 103 MEQ/L (98-107); GLOMERULAR FILTRATION RATE > 60.0 (>60); GLUCOSE, FASTING 92 MG/DL (70-105); POTASSIUM SERUM 4.4 MEQ/L (3.5-5.1); SODIUM LEVEL 138 MEQ/L (136-145)
[2016-07-24 20:17] LABS: OSMOLALITY SERUM 297 MOSM/KG (275-295)
[2016-07-24 20:27] LABS: ALBUMIN 4.4 GM/DL (3.2-5.2); ANION GAP 5 MEQ/L (8-16); BLOOD UREA NITROGEN 13 MG/DL (7-18); CALCIUM LEVEL 9.1 MG/DL (8.5-10.1); CARBON DIOXIDE LEVEL 32 MEQ/L (21-32); CHLORIDE LEVEL 105 MEQ/L (98-107); GLOMERULAR FILTRATION RATE > 60.0 (>60); GLUCOSE, FASTING 84 MG/DL (70-105); PHOSPHORUS LEVEL 2.9 MG/DL (2.5-4.9); POTASSIUM SERUM 4.1 MEQ/L (3.5-5.1); SODIUM LEVEL 142 MEQ/L (136-145)
[2016-07-24] MEDS ORDERED: PRAZOSIN 1 MG CAP PO SCH (21:00)
[2016-07-24] MEDS ORDERED: traZODone 50 MG TAB PO SCH (21:00)
[2016-07-24] MEDS ORDERED: NORTRIPTYLINE 25 MG CAP PO SCH (21:00)
[2016-07-24 22:00] VITALS: BP 119/75
[2016-07-24 22:19] VITALS: BP 119/75
--- NOTE | 2016-07-24 22:45 | HPE ---
DATE OF ADMISSION: 07/24/2016 PRIMARY CARE PROVIDER: Dr. Morales, [facility] ELECTRICAL TECH/PROJECT MANAGER: Dr. Kay CHIEF COMPLAINT: Polyuria. HISTORY OF THE PRESENT ILLNESS: Mr. Darby is a 25-year-old male with a past medical history of anxiety, depression, chronic migraines and polyuria who was sent in from Dr. Kay's office for further evaluation of his polyuria. Patient has had polyuria for 7-8 months. Associated with increased thirst and polyphagia. Denies fevers, chills, hematuria, weight loss, new back pain. He was drinking 2 liters of water a day but would urinate 5 liters every day. He was urinating every hour and the longest he could hold his urine is 2 hours. Because of his increased polyuria, he has cut down his fluid to 1 liter a day but despite cutting down his fluid, he continued to make excessive output. He was evaluated by urology in February 2016 and had urinalysis performed which was unrevealing. However, because of persistent polyuria, he was sent to Dr. Kay for further evaluation for possible diabetes insipidus, and he is admitted today for further testing for diabetes insipidus (DI). There have been no significant changes to his medications in the last 7-8 months. No new stressors. He was seen by psychiatry today and was advised to stop his trazodone. Outpatient workup includes random osmolality which were ranging 295 to 367, but when he was placed on a brief period of fluid restriction, his urine osmolality did improve. ADH level was also checked and was negative earlier this month. His serum osmolality were also within normal range both before and after 2 hours of water deprivation. He was also at some point placed on desmopressin. He also had a pelvic ultrasound performed at [facility] in November 2015 that reported "...ureter, bladder normal size and volume. No wall thickening or mural nodularity. No filling defect or mass. Bilateral ureteral jets normal. 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 Followup chest x-ray was negative for active tuberculosis (TB). Motion sickness. Migraine headaches, sees neurology. Chronic dizziness. Chronic back pain. Anxiety. Depression. PAST SURGICAL HISTORY: None. ALLERGIES: No known drug allergies.. HOME MEDICATIONS: - hydroxyzine 25 mg every 6 hours as needed for anxiety. - nortriptyline 50 mg nightly - Minipress 1 mg nightly for nightmares FAMILY HISTORY: Father with diabetes. No other family members with health issues he is aware of. He has siblings who are healthy. 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 He does not smoke. No alcohol. No drug use. He is a [place] of [facility]. Traveled to many states, including [place], [place], [place], traveled to [place] and [facility] in 2013. He has not traveled to the [facility] area. He is not aware of being exposed to asbestos. REVIEW OF SYSTEMS: CONSTITUTIONAL: Denies fevers, chills, rigors, weight changes. HENT: Positive for chronic migraine headaches, motion sickness, dizziness. Follows with neurology. No speech and swallow difficulty. Eyes: Denies any vision changes, blurred vision, double vision, although he does wear corrective lenses. CARDIOVASCULAR: Denies chest pain, paroxysmal nocturnal dyspnea, pillow orthopnea, lower extremity edema. PULMONARY: Denies shortness of breath, productive cough, hemoptysis. GASTROINTESTINAL: Denies hematochezia, melena, or hematemesis, nausea, vomiting, diarrhea, constipation. GENITOURINARY: Positive for polyuria, as mentioned above. MUSCULOSKELETAL: No bone, muscle, joint pain. Positive for chronic low back pain , unchanged. NEUROLOGICAL: No paralysis, paresthesia. Positive for history of migraine headaches. ENDOCRINE: Positive for polyuria, polydipsia, polyphagia but no weight changes. LYMPHATICS: No lumps, bumps, or swelling anywhere in neck, axilla, or groin. HEMATOLOGY: No abnormal bleeding or bruising. PSYCHIATRY: Positive for depression, anxiety and previous hospitalization for psychiatric disorder in May 2016. SKIN: No new rashes or lesions. PHYSICAL EXAMINATION: VITAL SIGNS: Blood pressure 133/76, heart rate 82, temperature 97.7, respiratory rate 18, pulse oximetry 96% on room air. Weight 69.1 kg. GENERAL: Patient is lying in bed, comfortable, in no acute distress. He is alert, awake, oriented times three, pleasant and cooperative. HEENT: Normocephalic, atraumatic, moist oral mucosa. Nasal septum midline. EYES: Extraocular movement intact. Pupils equal and reactive to light. NECK: Supple, trachea midline, no jugular venous distention (JVD). No palpable lymphadenopathy or thyromegaly. CHEST: Symmetric chest rise, no accessory muscle use. Breath sounds were clear to auscultation bilaterally. HEART: Regular rate and rhythm with normal S1 and S2. No appreciable murmurs, rubs or gallops. ABDOMEN: Soft, nontender, nondistended. Bowel sounds present. No guarding, no rebound. EXTREMITIES: No pedal edema. Pedal pulses present bilaterally. NEUROLOGIC: Strength 5/5 in all extremities. Sensory is diminished on his right lower compared to left, which reportedly is chronic for him. This is being followed by neurology and had an MRI done recently, per patient. PSYCHIATRIC: Pleasant, cooperative. Good affect. INTEGUMENT: No obvious rashes or lesions appreciated. He does have dry skin. LABORATORY DATA: Sodium 138, potassium 4.4, chloride 103, carbon dioxide 28, BUN 12, creatinine 0.9, glucose 92. Urine osmolality 286. Calcium 9.2. Phosphorus 3. Albumin 4.6. Urinalysis is clear. Urine random osmolality is 170. CT abdomen and pelvis performed from 07/13/2016 reports spleen at upper range of normal in size; otherwise normal CT abdomen and pelvis with IV and oral contrast. IMPRESSION AND PLAN: Mr. Darby is a 25-year-old male with a past medical history of depression, anxiety, polyuria, who is admitted for further workup of his underlying polyuria. 1. Polyuria. Etiology unclear. He's had a thorough outpatient workup for diabetes insipidus. His ADH level was normal. His serum osmolality was normal, which is less suggestive of diabetes insipidus. Though he was drinking only 1-2 liters a day, was reporting up to 5 liters of output every day. However, it is interesting that despite his excessive amount of urine output, his weight has remained steady in the last 8 months. The patient will be placed on water deprivation test for 8 hours. Will check urinalysis, urine osmolality, serum osmolality, renal profile and weigh every 4 hours while he is on fluid restriction. The patient will have a sitter in his room while he is having his water deprivation test. Because of his polydipsia, polyuria and family history of diabetes, we have also ordered a hemoglobin A1c. The patient knows that he will be placed on fluid restriction and is agreeable with plan. 2. History of chronic migraine. Continue his home dose nortriptyline. 3. History of nightmares. Continue home dose prazosin. 4. History of anxiety. He is only on hydroxyzine as needed. DISPOSITION: Due to the patient's condition, we expect his stay to be less than two midnights. My preceptor for this patient encounter was Dr. Kay. The preceptor was physically present in the building during the encounter and was fully available. As needed, all aspects of the patient interview, examination, medical decision making process, and medical care plan development were reviewed and approved by the preceptor. The preceptor is aware and concurs with the plan as stated in the body of this note and will attest to such by his/her cosignature. cc: Molina Malik
[2016-07-25 01:22] LABS: ALBUMIN 4.1 GM/DL (3.2-5.2); ANION GAP 8 MEQ/L (8-16); BLOOD UREA NITROGEN 13 MG/DL (7-18); CALCIUM LEVEL 8.9 MG/DL (8.5-10.1); CARBON DIOXIDE LEVEL 29 MEQ/L (21-32); CHLORIDE LEVEL 104 MEQ/L (98-107); CREATININE FOR GFR 1.07 MG/DL (0.70-1.30); GLOMERULAR FILTRATION RATE > 60.0 (>60); GLUCOSE, FASTING 84 MG/DL (70-105); PHOSPHORUS LEVEL 3.8 MG/DL (2.5-4.9); POTASSIUM SERUM 4.3 MEQ/L (3.5-5.1); SODIUM LEVEL 141 MEQ/L (136-145)
[2016-07-25 01:35] LABS: OSMOLALITY SERUM 287 MOSM/KG (275-295)
[2016-07-25 04:55] LABS: MEAN CORPUSCULAR HEMOGLOBIN 29.6 pg (27.0-33.0); MEAN CORPUSCULAR HGB CONC 35.8 g/dl (32.0-36.5); MEAN CORPUSCULAR VOLUME 82.7 fl (80.0-96.0); RED CELL DISTRIBUTION WIDTH 13.3 % (11.5-14.5); WHITE BLOOD COUNT 4.5 K/mm3 (4.0-10.0)
[2016-07-25 05:12] LABS: OSMOLALITY SERUM 288 MOSM/KG (275-295)
[2016-07-25 05:22] LABS: ALBUMIN 4.1 GM/DL (3.2-5.2); ANION GAP 7 MEQ/L (8-16); BLOOD UREA NITROGEN 12 MG/DL (7-18); CALCIUM LEVEL 8.4 MG/DL (8.5-10.1); CARBON DIOXIDE LEVEL 28 MEQ/L (21-32); CHLORIDE LEVEL 106 MEQ/L (98-107); CREATININE FOR GFR 1.09 MG/DL (0.70-1.30); GLOMERULAR FILTRATION RATE > 60.0 (>60); GLUCOSE, FASTING 101 MG/DL (70-105); PHOSPHORUS LEVEL 2.9 MG/DL (2.5-4.9); POTASSIUM SERUM 4.1 MEQ/L (3.5-5.1); SODIUM LEVEL 141 MEQ/L (136-145)
[2016-07-25 06:00] VITALS: BP 113/61
[2016-07-25 10:05] LABS: OSMOLALITY SERUM 290 MOSM/KG (275-295)
[2016-07-25 10:17] LABS: ALBUMIN 4.1 GM/DL (3.2-5.2); ANION GAP 5 MEQ/L (8-16); BLOOD UREA NITROGEN 12 MG/DL (7-18); CALCIUM LEVEL 8.8 MG/DL (8.5-10.1); CARBON DIOXIDE LEVEL 30 MEQ/L (21-32); CHLORIDE LEVEL 104 MEQ/L (98-107); CREATININE FOR GFR 1.21 MG/DL (0.70-1.30); GLOMERULAR FILTRATION RATE > 60.0 (>60); GLUCOSE, FASTING 100 MG/DL (70-105); PHOSPHORUS LEVEL 2.5 MG/DL (2.5-4.9); SODIUM LEVEL 139 MEQ/L (136-145)
[2016-07-25 14:00] VITALS: BP 117/69
--- NOTE | 2016-07-25 17:43 | DSES ---
DATE OF ADMISSION: 07/24/2016 DATE OF DISCHARGE: 07/25/2016 PRIMARY CARE PROVIDER: Molina Malik ELECTRICAL LINE SPLICER: Dr. Kay DISCHARGE DIAGNOSES: 1. Psychogenic polydipsia. 2. 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 SECONDARY DIAGNOSES: 1. Chronic migraine headache. 2. History of nightmares. BRIEF HOSPITAL COURSE: Mr. Darby is a 25-year-old male with a past medical history as mentioned above, who was sent in from Dr. Kay's office for evaluation of polyuria. The patient reportedly has had polyuria ongoing for 7 to 8 months. Reportedly was drinking only 2 liters a day but would urinate up to 5 liters a day. Despite excessive urination for 7 to 8 months, his weight remains unchanged. He had an extensive outpatient workup, including urine osmolality, urinalysis, ADH and all were normal. He also had outpatient pelvic ultrasound performed from November 2015 that showed normal evaluation of urinary bladder. Prevoid was 311 with postvoid volume 5 mL. For complete history and physical, please see dictation completed yesterday. Because of his persistent polyuria, he was admitted for further investigation. He was placed on water deprivation test for 8 hours. After multiple collections of renal profile, urinalysis, urine osmolality, along with weighing the patient every 4 hours, his test essentially came back negative for diabetes insipidus. His hemoglobin A1/c was 5.3. Based on his symptoms and signs, they are more consistent with Psychogenic polydipsia. Because of his persistent complaint of polyuria despite voiding episodes, he had a bladder scan that showed 218 mL prevoid and 119 mL postvoid. Because of his negative testing for diabetes insipidus, the patient was amenable to be discharged today, 07/25/2016. PHYSICAL EXAMINATION: At the time of discharge: VITAL SIGNS: Blood pressure 113/61, heart rate 81, temperature 99, respiratory rate 16, pulse oximetry 98% on room air. GENERAL: The patient was lying in bed comfortable. No acute distress. Alert, awake, oriented times three. Pleasant, cooperative. HEENT: Normocephalic, atraumatic. Nasal septum midline. Moist oral mucosa. Eyes: Extraocular movements intact. Pupils are equal and reactive to light. Neck: Supple. Trachea midline. No jugular venous distention (JVD). CHEST: Symmetric chest rise. No accessory muscle use. Breath sounds are clear to auscultation bilaterally. HEART: Regular rate and rhythm with normal S1, S2. No appreciable murmurs, rubs or gallops. ABDOMEN: Soft, nontender, nondistended. Bowel sounds present. No guarding. No rebound. EXTREMITIES: No pedal edema. Pedal pulses present bilaterally. NEUROLOGIC: No focal deficits appreciated. PSYCHIATRIC: Pleasant, cooperative. Normal affect. INTEGUMENTARY: No obvious rashes appreciated. RELEVANT LABORATORY DATA: Chemistry on admission: Sodium 141, potassium 4.3, chloride 104, carbon dioxide 29. Serum osmolality 287, calcium 8.9, phosphorous 3.8. Serum osmolality testing in consecutive order: 286, 297, 287, 288, 290, 290. Sodium ranged 138-142. Urine osmolality on admission 170. After fluid restriction, urine osmolality in consecutive order: 657, 779, 628, 762. Urinalysis on admission showed urine specific gravity of 1.002. Repeat after water deprivation showed specific gravity of 1.018. Hemoglobin A1/c 5.3. DISPOSITION: Home. ACTIVITY: As tolerated. DIET: regular with 2 liter fluid restriction to prevent polyuria. CONDITION: Stable. FOLLOWUP: Followup with Dr. Andrew Maria in 1 to 2 weeks. The patient is instructed to return to the hospital if he has worsening symptoms or anything else concerning to the patient. Time spent: 35 minutes. My preceptor for this patient encounter was Dr. Kay. The preceptor was physically present in the building during the encounter and was fully available. As needed, all aspects of the patient interview, examination, medical decision making process, and medical care plan development were reviewed and approved by the preceptor. The preceptor is aware and concurs with the plan as stated in the body of this note and will attest to such by his/her cosignature. cc: Molina Malik
== END 2016-07-25 16:50 | disposition home or self-care (01) ==
LOC: M MSPAV 13:27 → INTOOBSV 13:27
PROVIDERS: ADMIT Internal Medicine Nephrology; ATTEND Internal Medicine Nephrology
DX: R63.1 Polydipsia (principal); F63.89 Other impulse disorders; R35.8 Other polyuria; G43.709 Chronic migraine without aura, not intractable, without status migrainosus; F51.5 Nightmare disorder; F41.9 Anxiety disorder, unspecified; F32.9 Major depressive disorder, single episode, unspecified; R42 Dizziness and giddiness; M54.9 Dorsalgia, unspecified; G89.29 Other chronic pain; R76.11 Nonspecific reaction to tuberculin skin test without active tuberculosis; Z79.899 Other long term (current) drug therapy; Z83.3 Family history of diabetes mellitus